=== PATIENT | male | born 1955 | race Caucasian/White ===

== ENCOUNTER 2020-10-18 06:52 | Outpatient (REF) | payer MEDICARE, SELFPAY ==
[2020-10-18 08:13] LABS: MANUAL DIFF FLAG NO
[2020-10-18 08:24] LABS: Basophils Percent Auto 0.6 % (0-2); Eosinophils Absolute Auto 0.2 X10*3/uL (0.0-0.4); Eosinophils Percent Auto 2.5 % (0-4); Hematocrit 42.2 % (42-52); Hemoglobin 14.7 g/dl (14.0-18.0); Imm Gran Abs Auto 0.03 X10*3/uL (0.00-0.03); Imm Gran Pct Auto 0.4 % (0.0-0.4); Lymphocytes Percent Auto 28.5 % (20-40); Mean Corpuscular HGB Conc 34.8 g/dl (31.0-36.0); Mean Corpuscular Hemoglobin 34.9 pg (27.0-33.0); Mean Corpuscular Volume 100.2 fL (80-98); Mean Platelet Volume 10.1 fL (9.4-12.4); Monocytes Absolute Auto 0.5 X10*3/uL (0.1-1.2); Monocytes Percent Auto 6.7 % (2-11); Neutrophils Absolute Auto 4.4 X10*3/uL (2.0-8.3); Neutrophils Percent Auto 61.3 % (45-73); Platelet Count 231 X10*3/uL (160-400); Red Blood Count 4.21 X10*6/uL (4.60-5.80); Red Cell Distribution Width 12.6 % (11.0-16.0); White Blood Count 7.2 X10*3/uL (4.8-10.8)
[2020-10-18 08:35] LABS: Alanine Aminotransferase 34 U/L (0-40); Albumin Level 4.1 g/dL (3.5-5.0); Alkaline Phosphatase 66 U/L (39-117); Anion Gap 15 (12-20); Aspartate Amino Transferase 24 U/L (5-37); Bilirubin Total 0.8 mg/dL (0.0-1.0); Blood Urea Nitrogen 16 mg/dL (9-16); Calcium 9.1 mg/dL (8.4-10.2); Carbon Dioxide 28 mmol/L (22-29); Chloride 105 mmol/L (96-108); Cholesterol 192 mg/dL; Estimated Glomerular Filt Rate > 60; Glucose Fasting 106 mg/dL (60-99); HDL Cholesterol 42 mg/dL; LDL Cholesterol Calculated 87 mg/dl; Potassium 4.7 mmol/L (3.3-5.1); Sodium 143 mmol/L (135-145); Triglycerides 319 mg/dL
[2020-10-18 09:46] LABS: Uric Acid 5.5 mg/dL (3.4-7.0)
== END 2020-10-18 06:53 | disposition home or self-care (01) ==
LOC: HO.LAB 06:52
PROVIDERS: PCP Internal Medicine; Visit Provider Internal Medicine
DX: Z00.00 Encounter for general adult medical examination without abnormal findings (principal); M10.9 Gout, unspecified; E11.9 Type 2 diabetes mellitus without complications
CPT/HCPCS: 36415; 80053; 80061; 84550; 85025

== ENCOUNTER 2021-02-22 08:30 | Outpatient (RCR) | payer MEDICARE, SELFPAY ==
--- NOTE | 2021-01-27 11:11 | MHC.OT.OEV ---
[address] [phone] F: [phone] Occupational Therapy Evaluation Diagnosis: GOUT LEFT FINGER Date of Onset: 08/23/20 Attending Provider: Ronan Camejo Prescribed Treatment: EVAL AND TREAT History of Current Condition: REPORTS HE HAD INFLAMMATION IN HIS LEFT INDEX FINGER, DETERMINED TO BE GOUT. SEEN BY ORTHO. REMAINS ON ALLOPURINOL TO REDUCE URIC ACID. CONTINUES TO REPORT ROM LIMITATIONS IN LEFT 2ND FINGER. Significant Medical History: CLUSTER HAs, HX OF FRACTURE TO RIGHT THUMB Precautions/Contraindications: UNIVERSAL Patient Goals: TO BE ABLE TO PLAY GUITAR WITH LEFT HAND Hand Dominance: Right QuickDASH Score: 14% Prior Level of Function and Occupation Self Care, Employment, Leisure: RETIRED. HOBBIES: EXERCISING / LIFTING WEIGHTS, PLAYING GUITAR, PLAYING WITH FOUR YOUNG GRANDCHILDREN Living Situation, Family and/or Social Support: LIVES WITH SPOUSE Current Level of Function and Occupation Self Care, Employment, Leisure: DIFFICULTIES WITH PLAYING GUITAR WITH LEFT HAND AND HOLDING BARBELL. DENIES DIFFICULTIES WITH HOUSEHOLD TASKS/ IADLs OR ADLs. Sleep: DENIES Driving: DENIES Pain Assessment Pain Score: 0-3 Pain Scale Used: Numeric (0 - 10) Pain Location and Description: PAINFREE AT REST 3/10 WITH ROM/ GRIPPING REPORTS TIGHTNESS TO DORSAL PIP WITH ROM/GRIPPING Aggravating Factors: END RANGE FLEXION, GRIPPING Alleviating Factors: HAS TRIED ICE/HEAT, PERCOCET FOR CLUSTER HEADACHES Skin and Soft Tissue Assessment Skin and Soft Tissue: Swelling Scar Tissue Comments: LEFT DORSAL PIPj OF INDEX FINGER Sensory Assessment Temperature: WFL Light Touch: Proprioception: Vibration: Comments: DENIES PARASTHESIA Edema Assessment Upper Extremity: Left Impaired Lower Extremity: Comments: CIRCUMFERENCE OF PIPj OF D2: LEFT: 6.8 CM, RIGHT: 7.0 CM Dexterity Assessment Dexterity: Left Impaired Comments: FUNCTIONAL DEXTERITY TEST: LEFT 45 SECONDS, RIGHT: 39 SECONDS LEFT: MODERATELY FUNCTIONAL RATING Special Tests Comments: AROM(PROM) Strength Digits Index MCP: L 84, R 72 PIP: L 94, R 94 DIP: L 74, R 90 Long MCP: PIP: DIP: Ring MCP: PIP: DIP: Small MCP: PIP: DIP: Comments: PAIN WITH PIP FLEXION OF D2 Gross Grasp: L 68 POUNDS, R 52 POUNDS Lateral Pinch: L 18 R 25 Two-Point Pinch: L 7 R 10 Three-Jaw Ramos: L 11 R 14 Comments: Patient Education Primary Language: Guyanese 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 Patient demonstrates Patient verbalizes Barriers to Learning: None Readiness for Learning: Accepting Who was educated? Patient Comments: Plan of Care Assessment: VREONICA REPORTS ABOUT A SIX MONTH HISTORY OF ROM LIMITATIONS IN HIS LEFT INDEX FINGER. HIS ROM LIMITATIONS BEGAN AFTER HAVING A GOUT FARE UP, AND EVEN AFTER THE GOUT WAS TREATED - HE CONTINUED TO HAVE ROM DEFICIENCIES. HE REPORTS FRUSTRATIONS WITH ABILITY TO PLAY THE GUITAR AND HOLD A DUMBBELL WHEN LIFTING WEIGHTS AT THE GYM. A 14% LIMITATION IS REPORTED PER THE QUICK DASH ASSESSMENT. STG Duration: Short Term Goals: SEE BELOW LTG Duration: 4 WEEKS Half-Way Goals: IND HEP IND SCAR MOBILIZATION AND SELF MASSAGE IMPROVE DEXTERITY TO FUNCTIONAL, PER FUNCTIONAL DEXTERITY TEST DEMO COMPOSITE FIST WITH LOW PAIN L GRASP >60 POUNDS RESUME HOBBIES/ IADLs WITH MINIMAL DIFFICULTIES AND <2/10 PAIN QUICK DASH <8% Frequency and Duration: The patient will be seen 2X/WEEK FOR 4 WEEKS Treatment Plan: Therapeutic Exercise Therapeutic Activity Home Exercise Program Splinting Neuro Re-ed Patient Education Desensitization/Sensory Re-ed Edema Control ADL Training Ultrasound NMES Iontophoresis Paraffin Fluidotherapy MHP Cold Packs Joint Mobilization Soft Tissue Mobilization Kinesiotaping Other (see comments) Electronically Signed By: RAMA BETANCOURT/L Reviewed/agree with student documentation: N/A Therapist: Please sign and return to therapist, Thank you for your referral.
--- NOTE | 2021-02-22 09:49 | MHC.OT.DC ---
[address] [phone] F: [phone] Occupational Therapy Discharge Note Provider: Ronan Camejo Diagnosis: GOUT LEFT FINGER Date of Surgery: Date of Evaluation: 01/27/21 Date of Discharge: 02/22/21 Treatments to Date: 5 Cancellations to Date: No Shows to Date: Discharge Status: Achieved Goals Improved Function Independent with HEP Discharge Summary: Index ROM WFL. Hand strength and dexterity WNL. Pt has improving index PIP jt stiffness at 90 deg and complaint of PIP jt pain with playing the guitar He is highly motivated to regain painfree index with playing the guitar and demonstrates indep in his HEP Electronically Signed By: DERRICK KENNEDY OT, CHT, CLT Reviewed/agree with student documentation: N/A Therapist: Please Sign and return to therapist, thank you for your referral.
== END 2021-02-22 09:50 | disposition other institution (70) ==
LOC: HO.OT 08:30
PROVIDERS: PCP Internal Medicine; Visit Provider Internal Medicine
DX: M10.9 Gout, unspecified (principal)
CPT/HCPCS: 97035; 97110; 97165; 97530

== ENCOUNTER → 2021-08-23 07:55 | Outpatient (BNVA) | payer MEDICARE, SELFPAY | PROVIDERS: PCP Internal Medicine; Referring Provider Internal Medicine; Visit Provider Psychiatry & Neurology Neurology | DX: G44.009 Cluster headache syndrome, unspecified, not intractable (principal); G47.33 Obstructive sleep apnea (adult) (pediatric); Z99.89 Dependence on other enabling machines and devices | CPT/HCPCS: 99212 ==

== ENCOUNTER → 2021-12-05 07:59 | Outpatient (BNVA) | payer MEDICARE, SELFPAY | PROVIDERS: PCP Internal Medicine; Visit Provider Psychiatry & Neurology Neurology | DX: G44.009 Cluster headache syndrome, unspecified, not intractable (principal); G47.33 Obstructive sleep apnea (adult) (pediatric) | CPT/HCPCS: 99212 ==

== ENCOUNTER → 2022-03-13 07:53 | Outpatient (BNVA) | payer MEDICARE, SELFPAY | PROVIDERS: PCP Internal Medicine; Visit Provider Psychiatry & Neurology Neurology | DX: G44.009 Cluster headache syndrome, unspecified, not intractable (principal); G47.33 Obstructive sleep apnea (adult) (pediatric) | CPT/HCPCS: 99212 ==

== ENCOUNTER 2022-04-18 07:28 | Outpatient (REF) | payer MEDICARE, SELFPAY ==
[2022-04-18 07:48] LABS: MANUAL DIFF FLAG NO
[2022-04-18 07:59] LABS: Basophils Percent Auto 0.5 % (0-2); Eosinophils Absolute Auto 0.2 X10*3/uL (0.0-0.4); Eosinophils Percent Auto 2.9 % (0-4); Hematocrit 43.2 % (42.0-52.0); Hemoglobin 14.6 g/dl (14.0-18.0); Imm Gran Abs Auto 0.03 X10*3/uL (0.00-0.03); Imm Gran Pct Auto 0.5 % (0.0-0.4); Lymphocytes Absolute Auto 1.9 X10*3/uL (1.2-4.9); Lymphocytes Percent Auto 30.8 % (20-40); Mean Corpuscular HGB Conc 33.8 g/dl (31.0-36.0); Mean Corpuscular Hemoglobin 34.2 pg (27.0-33.0); Mean Corpuscular Volume 101.2 fL (80.0-98.0); Mean Platelet Volume 9.6 fL (9.4-12.4); Monocytes Absolute Auto 0.5 X10*3/uL (0.1-1.2); Monocytes Percent Auto 7.9 % (2-11); Neutrophils Absolute Auto 3.6 x10*3/uL (2.0-8.3); Neutrophils Percent Auto 57.4 % (45-73); Platelet Count 183 X10*3/uL (160-400); Red Blood Count 4.27 X10*6/uL (4.60-5.80); White Blood Count 6.2 X10*3/uL (4.8-10.8)
[2022-04-18 08:23] LABS: Alanine Aminotransferase 27 U/L (0-40); Albumin Level 4.1 g/dL (3.5-5.0); Alkaline Phosphatase 62 U/L (39-117); Anion Gap 16 (12-20); Aspartate Amino Transferase 22 U/L (5-37); Bilirubin Total 0.8 mg/dL (0.0-1.0); Blood Urea Nitrogen 24 mg/dL (9-16); Calcium 9.5 mg/dL (8.4-10.2); Carbon Dioxide 28 mmol/L (22-29); Chloride 105 mmol/L (96-108); Cholesterol 205 mg/dL; Estimated Glomerular Filt Rate > 60; Glucose Fasting 97 mg/dL (60-99); HDL Cholesterol 49 mg/dL; LDL Cholesterol Calculated 101 mg/dl; Potassium 4.7 mmol/L (3.3-5.1); Sodium 144 mmol/L (135-145); Triglycerides 275 mg/dL; Uric Acid 5.5 mg/dL (3.4-7.0)
[2022-04-18 08:46] LABS: Thyroid Stimulating Hormone 1.24 uIU/mL (0.32-4.0)
== END 2022-04-18 07:29 | disposition home or self-care (01) ==
LOC: HO.LAB 07:28
PROVIDERS: Absent Provider Psychiatry & Neurology Neurology; PCP Internal Medicine; Visit Provider Internal Medicine
DX: Z00.00 Encounter for general adult medical examination without abnormal findings (principal); Z12.5 Encounter for screening for malignant neoplasm of prostate; Z13.0 Encounter for screening for diseases of the blood and blood-forming organs and certain disorders involving the immune mechanism; M10.9 Gout, unspecified; E78.5 Hyperlipidemia, unspecified; E03.9 Hypothyroidism, unspecified; I10 Essential (primary) hypertension
CPT/HCPCS: 36415; 80053; 80061; 84153; 84443; 84550; 85025

== ENCOUNTER → 2022-06-05 09:41 | Outpatient (REF) | payer MEDICARE, SELFPAY ==
--- NOTE | 2022-06-05 09:51 | ECG_ITS ---
Test Reason : DIZZINESS Blood Pressure : / mmHG Vent. Rate : 054 BPM Atrial Rate : 054 BPM P-R Int : 212 ms QRS Dur : 092 ms QT Int : 428 ms P-R-T Axes : 053 003 028 degrees QTc Int : 405 ms Sinus bradycardia with 1st degree A-V block RSR' or QR pattern in V1 suggests right ventricular conduction delay Left axis deviation Abnormal ECG No previous ECGs available Referred By: Ronan Camejo Electronically Signed By:KRISTOPHER PETIT MD
== END ==
LOC: HO.CARD 09:41
PROVIDERS: PCP Internal Medicine; Visit Provider Internal Medicine
DX: R42 Dizziness and giddiness (principal)
CPT/HCPCS: 93005

== ENCOUNTER → 2022-06-07 08:39 | Outpatient (BNVA) | payer MEDICARE, SELFPAY | PROVIDERS: PCP Internal Medicine; Visit Provider Nurse Practitioner Family | DX: G44.009 Cluster headache syndrome, unspecified, not intractable (principal); G47.33 Obstructive sleep apnea (adult) (pediatric) | CPT/HCPCS: 99212 ==

== ENCOUNTER 2022-08-02 10:18 | Outpatient (REF) | payer MEDICARE, SELFPAY | END 2022-08-02 10:19 | disposition home or self-care (01) | LOC: HO.SH 10:18 | PROVIDERS: Visit Provider Internal Medicine | DX: Z01.118 Encounter for examination of ears and hearing with other abnormal findings (principal); H90.3 Sensorineural hearing loss, bilateral | CPT/HCPCS: 92557 ==

== ENCOUNTER → 2022-08-22 07:55 | Outpatient (BNVA) | payer MEDICARE, SELFPAY | PROVIDERS: PCP Internal Medicine; Visit Provider Psychiatry & Neurology Neurology | DX: G44.009 Cluster headache syndrome, unspecified, not intractable (principal); G47.33 Obstructive sleep apnea (adult) (pediatric) | CPT/HCPCS: 99212 ==

== ENCOUNTER 2022-08-28 14:05 | Outpatient (REF) | payer MEDICARE, SELFPAY ==
[2022-08-28 14:17] LABS: MANUAL DIFF FLAG NO
[2022-08-28 14:39] LABS: Basophils Percent Auto 0.4 % (0-2); Eosinophils Absolute Auto 0.1 X10*3/uL (0.0-0.4); Eosinophils Percent Auto 1.6 % (0-4); Hemoglobin 13.2 g/dl (14.0-18.0); Imm Gran Abs Auto 0.03 X10*3/uL (0.00-0.03); Imm Gran Pct Auto 0.4 % (0.0-0.4); Lymphocytes Absolute Auto 1.6 X10*3/uL (1.2-4.9); Lymphocytes Percent Auto 21.7 % (20-40); Mean Corpuscular HGB Conc 34.7 g/dl (31.0-36.0); Mean Corpuscular Hemoglobin 34.7 pg (27.0-33.0); Mean Platelet Volume 9.7 fL (9.4-12.4); Monocytes Absolute Auto 0.4 X10*3/uL (0.1-1.2); Monocytes Percent Auto 5.4 % (2-11); Neutrophils Absolute Auto 5.2 x10*3/uL (2.0-8.3); Neutrophils Percent Auto 70.5 % (45-73); Platelet Count 213 X10*3/uL (160-400); Red Cell Distribution Width 12.1 % (11.0-16.0); White Blood Count 7.4 X10*3/uL (4.8-10.8)
[2022-08-28 15:04] LABS: Anion Gap 14 (12-20); Blood Urea Nitrogen 16 mg/dL (9-16); Calcium 9.9 mg/dL (8.4-10.2); Carbon Dioxide 28 mmol/L (22-29); Chloride 106 mmol/L (96-108); Estimated Glomerular Filt Rate 57; Glucose Random 140 mg/dL (60-115); Potassium 4.6 mmol/L (3.3-5.1); Sodium 143 mmol/L (135-145)
[2022-08-28 15:20] LABS: Appearance Urine Clear; Color Urine Yellow; Glucose Urine UA Negative (Negative); Leukocyte Esterase Urine Negative (Negative); Nitrite Urine Negative (Negative); Urine Blood Negative (Negative); Urine Ketones Negative (Negative); Urine Protein Negative (Neg-Trace)
== END 2022-08-28 14:06 | disposition home or self-care (01) ==
LOC: HO.LAB 14:05
PROVIDERS: PCP Internal Medicine; Visit Provider Internal Medicine
DX: N39.0 Urinary tract infection, site not specified (principal); D64.9 Anemia, unspecified; R10.9 Unspecified abdominal pain
CPT/HCPCS: 36415; 80048; 81003; 85025

== ENCOUNTER 2022-09-05 11:58 | Outpatient (REF) | payer MEDICARE, SELFPAY ==
--- NOTE | ~2022-09-05 | US_ITS ---
EXAMINATION: US ABDOMEN COMPLETE CLINICAL INFORMATION: Abdominal pain. COMPARISON: None TECHNIQUE: Real-time imaging of the abdominal viscera. FINDINGS: PANCREAS: The pancreas is partially obscured by bowel gas. The visualized portions of the pancreas are normal. No pancreatic ductal dilatation. ABDOMINAL AORTA: The proximal abdominal aorta is normal in caliber. The mid and distal segments of the aorta are obscured by bowel gas. INFERIOR VENA CAVA: Visualized portions are normal. LIVER: Liver has normal size and contour. The parenchyma appears to be mildly hyperechoic with slightly decreased definition of venous cardona throughout the liver. Mild steatosis is suspected. No focal lesion or intrahepatic bile duct dilatation. GALLBLADDER: Surgically absent. COMMON BILE DUCT: Normal in caliber measuring 0.7 - 0.8 cm in diameter. RIGHT KIDNEY: The right kidney is 10.7 cm in length and it has a few simple cysts, including 5.6 cm cyst of the upper pole. No renal imaging follow-up is recommended for simple cysts. No nephrolithiasis or hydronephrosis. LEFT KIDNEY: Normal. No hydronephrosis. No renal calculi or focal parenchymal lesions. The kidney measures 11.9 cm in maximum dimension. SPLEEN: Normal. The spleen measures 11.1 cm in maximum dimension. FREE FLUID: None. US/US abdomen complete IMPRESSION: * No acute sonographic abnormalities within the visualized abdomen. * Mild hepatic steatosis is suspected. Consider correlation with liver function tests. * Simple cysts of the right kidney.
== END 2022-09-05 11:59 | disposition home or self-care (01) ==
LOC: HO.US 11:58
PROVIDERS: Visit Provider Internal Medicine
DX: R10.9 Unspecified abdominal pain (principal)
CPT/HCPCS: 76700

== ENCOUNTER → 2022-10-24 08:21 | Outpatient (BNVA) | payer MEDICARE, SELFPAY | PROVIDERS: PCP Internal Medicine; Visit Provider Psychiatry & Neurology Neurology | DX: G44.009 Cluster headache syndrome, unspecified, not intractable (principal); G43.709 Chronic migraine without aura, not intractable, without status migrainosus; G47.33 Obstructive sleep apnea (adult) (pediatric) | CPT/HCPCS: 99212 ==

== ENCOUNTER → 2022-11-21 09:04 | Outpatient (BNVA) | payer MEDICARE, SELFPAY | PROVIDERS: PCP Internal Medicine; Referring Provider Internal Medicine; Visit Provider Internal Medicine | DX: R42 Dizziness and giddiness (principal); G47.33 Obstructive sleep apnea (adult) (pediatric); Z82.49 Family history of ischemic heart disease and other diseases of the circulatory system | CPT/HCPCS: 99202 ==

== ENCOUNTER → 2022-12-08 07:51 | Outpatient (REF) | payer MEDICARE, SELFPAY ==
--- NOTE | 2022-12-08 07:54 | CA_ITS ---
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 Study Quality: Adequate w Contrast ECG Rhythm: Sinus Conclusions: - Normal left ventricular cavity size. There is moderately increased left ventricular wall thickness. The left ventricular systolic function is low normal. The visually estimated ejection fraction is between 50-55%. - The apex, apical anterior, and apical lateral segments are hypokinetic. Findings Left Ventricle Normal left ventricular cavity size. There is moderately increased left ventricular wall thickness. The left ventricular systolic function is low normal. The visually estimated ejection fraction is between 50-55%. There is evidence of regional wall motion abnormalities. Abnormal diastolic function is noted. Spectral Doppler is indicative of an impaired relaxation filling pattern. E/E prime ratio is between 8 and 15 consistent with indeterminate filling pressures. Wall Motion Rest Echo Findings The apex, apical anterior, and apical lateral segments are hypokinetic. Right Ventricle Normal right ventricular cavity size and systolic function. Atria The left atrium is normal in size. Aortic Valve Normal aortic valve structure and function. There is no aortic valve stenosis. There is trace (trivial) aortic valve regurgitation. Mitral Valve Normal mitral valve structure and function. There is mild mitral valve regurgitation. There is no mitral valve stenosis. Pulmonic Valve Normal pulmonic valve structure and function. There is trace pulmonic valve regurgitation. Tricuspid Valve Normal tricuspid valve structure and function. There is no tricuspid valve regurgitation. Normal right atrial pressure. There is no evidence of pulmonary hypertension. Great Vessels There is mild dilatation of the ascending aorta measuring 4.10 cm. The visualized portions of the pulmonary artery and branches are normal. Venous The inferior vena cava is normal in size and collapses greater than 50% with inspiration. Pericardium/Pleural There is no evidence of pericardial effusion. Measurements 2D Linear Measurements IVSd: 1.41 0.6-0.9/0.6-1.0 cm LVIDd: 5.33 3.9-5.3/4.2-5.9 cm LVIDd Index: 2.29 2.4-3.2/2.2-3.1 cm/m2 LVIDs: 2.81 2.0-3.6 cm LVPWd: 1.44 0.7-1.1 cm Ao Root: 3.70 2.1-3.5 cm LA Diam: 3.30 2.7-3.8/3.0-4.0 cm LAIDs Index: 1.42 1.5-2.3 cm/m2 LV Mass: 411.76 67-162/88-224 g LV Mass Index: 176.72 43-95/49-115 g/m2 LVOT Diam: 2.20 3.0+(-)1.3 cm 2D Systolic Function EF 4C: 51.50 >55% EF 2C: 71.40 >55% EF BiP: 62.90 >55% Mitral Valve MV Pk E: 0.78 MV PK A: 0.82 MV Decel Time: 303.00 E/A: 0.90 E'Lateral: 7.62 E'Medial: 4.13 E/E' Med: 18.90 E/E' Lat: 10.20 PHT: 89.00 MVA PHT: 2.47 Decel Thayer: 2.58 Aortic Valve AoV Pk Anderson: 1.81 AoV Mn Anderson: 1.13 AoV VTI: 0.42 AoV Pk Grad: 13.00 Aov Mn Grad: 6.00 EZ Cont.VTI: 2.67 LVOT LVOT Pk Anderson: 1.36 LVOT Mn Anderson: 0.90 LVOT VTI: 0.30 LVOT Pk Grad: 7.00 LVOT Mn Grad: 4.00 LVOT Diam: 2.20 LVOT Area: 3.80 Diastolic Function MV Pk E: 0.78 MV Pk A: 0.82 E/A: 0.90 E'Medial: 4.13 E/E' Med: 18.90 E' Laterial: 7.62 E/E' Lat: 10.20 Right Ventricle TAPSE (mm): 28.00 TVS' Anderson: 16.00 Tricuspid Valve TR Pk Anderson: 1.63 TR Pk Grad: 11.00 RA Press: 3.00 RVSP: 14.00 Great Vessels Aorta Ao Root-2D: 3.70 2.0-3.7 cm Ao Asc: 4.10 2.1-3.4 cm Pulmonary Valve PV Pk Anderson: 1.17 Peak PV Grad: 5.00 Updated in Other Vendor System with Status of Final Michael Willis MD electronically signed on 12/10/2022 9:27:50 PM with status of Final
== END ==
LOC: HO.CARD 07:51
PROVIDERS: PCP Internal Medicine; Visit Provider Internal Medicine
DX: I25.10 Atherosclerotic heart disease of native coronary artery without angina pectoris (principal); G47.33 Obstructive sleep apnea (adult) (pediatric)
CPT/HCPCS: 93306; Q9957

== ENCOUNTER 2022-12-19 14:48 | Outpatient (REF) | payer MEDICARE, SELFPAY ==
[2022-12-19 16:04] LABS: Anion Gap 12 (12-20); Blood Urea Nitrogen 20 mg/dL (9-16); Calcium 9.3 mg/dL (8.4-10.2); Carbon Dioxide 29 mmol/L (22-29); Chloride 107 mmol/L (96-108); Estimated Glomerular Filt Rate > 60; Glucose Random 144 mg/dL (60-115); Potassium 4.5 mmol/L (3.3-5.1); Sodium 143 mmol/L (135-145)
== END 2022-12-19 14:49 | disposition home or self-care (01) ==
LOC: HO.LAB 14:48
PROVIDERS: PCP Internal Medicine; Visit Provider Internal Medicine
DX: R42 Dizziness and giddiness (principal); Z82.49 Family history of ischemic heart disease and other diseases of the circulatory system
CPT/HCPCS: 36415; 80048

== ENCOUNTER 2023-02-16 06:28 | Outpatient (REF) | payer MEDICARE, SELFPAY ==
[2023-02-16 08:26] LABS: Alanine Aminotransferase 29 U/L (0-40); Albumin Level 3.9 g/dL (3.5-5.0); Alkaline Phosphatase 64 U/L (39-117); Aspartate Amino Transferase 26 U/L (5-37); Bilirubin Direct 0.4 mg/dL (0.0-0.5); Bilirubin Total 0.6 mg/dL (0.0-1.0); Cholesterol 106 mg/dL; HDL Cholesterol 43 mg/dL; LDL Cholesterol Calculated 47 mg/dl; Total Protein 6.6 g/dL (6.5-8.0); Triglycerides 81 mg/dL
== END 2023-02-16 06:29 | disposition home or self-care (01) ==
LOC: HO.LAB 06:28
PROVIDERS: PCP Internal Medicine; Visit Provider Internal Medicine
DX: Z13.220 Encounter for screening for lipoid disorders (principal); Z82.49 Family history of ischemic heart disease and other diseases of the circulatory system
CPT/HCPCS: 36415; 80061; 80076

== ENCOUNTER 2023-03-13 13:37 | Outpatient (AMB) | payer MEDICARE, SELFPAY ==
[2023-03-13 14:09] VITALS: BP 186/82; PULSE 59; BMI 38.3
--- NOTE | 2023-03-13 14:09 | A.OFFVIS_ITS ---
Intake Vital Signs 03/13/23 14:09 Height 5 ft 10 in Weight 266 lb 12.149 oz BMI 38.3 BP 186/82 H Blood Pressure Location Lt brachial Position Sitting Pulse 59 Intake Visit Reasons: f/up Echo and calcium score Intake Note: follow up Hedis Analyst Required: No Accompanied by: Self / Same As Patient Allergies codeine Allergy (Unknown, Verified 03/13/23 14:11) Unknown erythromycin base Allergy (Unknown, Verified 03/13/23 14:11) Unknown Medication List - Last Reconciled 03/13/23 by Chinmay Wallace MD allopurinol 300 mg PO DAILY clonazepam 0.25 mg (1/2 x 0.5 mg) PO BEDTIME 30 days erenumab-aooe (Aimovig Autoinjector) 140 mg subcut ONCE 30 days gabapentin 1,200 mg (2 x 600 mg) PO TID 30 days magnesium oxide 400 mg PO DAILY oxycodone-acetaminophen 5-325 mg 1 - 2 tabs PO DAILY PRN 30 days riboflavin (vitamin B2) 400 mg PO DAILY rosuvastatin 10 mg PO DAILY verapamil 120 mg PO TID 30 days HPI HPI Comments History of Present Illness Details Aman was recently seen in consultation. He was actually referred for dizziness but that seems completely resolved at this time. However, there was concern for vascular disease as father apparently had coronary disease in apparent surgery and brother had congestive heart failure. This led to further workup including echocardiogram/coronary CTA. Since last seen, he states that he no longer has any dizziness and that is completely resolved. His blood pressures tend to run high when he is in the clinic but he states it is only from [place] hypertension and that it completely normalizes when he returns home. Otherwise, no angina or in fact anything cardiac sounding. Patient is on verapamil but that is for headaches. He also has significant sleep apnea. On CPAP. [facility] Medical History (Updated 03/13/23 @ 15:50 by Chinmay Wallace MD) Atherosclerotic cardiovascular disease Cluster headaches Gout Obesity Obstructive sleep apnea hypopnea, severe Surgical History History of cholecystectomy Family History Father Renal failure Mother Esophageal cancer Sister Lupus Brother End of life care Sister No problems noted. Son Substance use disorder Son Substance use disorder Social History Housing: House Alcohol intake: current Alcohol intake frequency: a few times a month Patient Tobacco Use Status: Never used Tobacco e-Cigarette/Vaping Use: Never Used Second Hand Smoke Exposure: No service: No Current occupational status: retired Cognitive needs: No Hearing needs: No Vision needs: No Review of Systems Const Denies weakness ENT Denies dizziness Card Denies chest pain, Denies chest pain with activity, Denies syncope, Denies rapid heart rate, Denies pedal edema, Denies edema, Denies leg edema, Denies lightheadedness, Denies palpitations, Denies dyspnea, Denies dyspnea on exertion and Denies orthopnea Resp Denies cough, Denies dyspnea and Denies dyspnea on exertion GI Denies hematochezia and Denies change in stool character Musc Denies abnormal gait, Denies muscle cramps, Denies muscle weakness, Denies numbness, Denies radiating pain into limb and Denies tingling Neuro Denies abnormal gait, Denies dizziness, Denies syncope, Denies numbness, Denies tingling and Denies weakness Endo Denies palpitations Physical Exam Vital Signs: Last Vital Signs Pulse 59 03/13/23 14:09 BP 186/82 H 03/13/23 14:09 BMI result Body Mass Index 38.3 Const General: comfortable and no acute distress Orientation/consciousness: patient oriented x3 HEENT Other: Unremarkable Head: Yes normal to inspection Neck Neck: Yes normal visual inspection Chest Chest palpation & inspection: normal inspection of the chest Resp Auscultation: clear to auscultation bilaterally Cardio Palpation: normal PMI Heart sounds: S1 normal heart sound present, S2 normal heart sound present, no gallops, no murmurs and no rubs GI Palpation (GI): Soft to palpation Back/Spine/Pelvis Other: unremarkable Skin General skin exam: no rashes or lesions noted Neuro General: patient oriented x3 Extrem General: Yes normal to inspection Psych Mental Status: mental status grossly normal Assessment & Plan Assessment & Plan (1) Atherosclerotic cardiovascular disease: Code(s): I25.10 - Atherosclerotic heart disease of [place] coronary artery without angina pectoris (2) Obstructive sleep apnea hypopnea, severe: Code(s): G47.33 - Obstructive sleep apnea (adult) (pediatric) (3) Obesity: Code(s): E66.9 - Obesity, unspecified (4) Dyslipidemia: Code(s): E78.5 - Hyperlipidemia, unspecified (5) Ascending aorta enlargement: Code(s): I77.89 - Other specified disorders of arteries and arterioles Plan Cardiac studies reviewed. Recent EKG with sinus bradycardia 54/Min; no significant ST-T changes; normal TX and corrected QT. Echocardiogram reported to have low normal LVEF at 50-55%; apex/apical anterior/apical lateral hypokinesis described but upon my review, not entirely convincing. Ascending aortic size 4.1 cm. In the coronary CTA, nothing hemodynamically significant. Albn-jy-[id number] calcific plaque in the LAD/try coronary artery but minimal stenosis at less than 25%. Overall, treat for stable coronary disease. He has been started on statins and lipids have improved significantly. That may be continued. With regard to his weight, definitely should lose some and we discussed about that today. Per sleep medicine note, severe JAMIL. Continue CPAP in this regard. The slight ascending aortic enlargement can be followed on echocardiograms. Follow-up in 1 year. In the interim, he will call concerns. Total time spent including review of data, counseling, documentation, coordination of care-32 minutes. Orders: Orders CA echo transthoracic complete 51 Weeks I25.10 - Atherosclerotic heart disease of [place] coronary artery without angina pectoris Coding Level of Care Code Est Pt Level 4 (17133) Diagnoses Atherosclerotic cardiovascular disease I25.10 Obstructive sleep apnea hypopnea, severe G47.33 Obesity E66.9 Dyslipidemia E78.5 Ascending aorta enlargement I77.89
== END 2023-03-13 15:44 | disposition home or self-care (01) ==
PROVIDERS: PCP Internal Medicine; Visit Provider Internal Medicine
DX: I25.10 Atherosclerotic heart disease of native coronary artery without angina pectoris (principal); G47.33 Obstructive sleep apnea (adult) (pediatric); E66.9 Obesity, unspecified; E78.5 Hyperlipidemia, unspecified; I77.89 Other specified disorders of arteries and arterioles
CPT/HCPCS: 99214

== ENCOUNTER → 2023-03-13 13:37 | Outpatient (BNVA) | payer MEDICARE, SELFPAY | PROVIDERS: PCP Internal Medicine; Visit Provider Internal Medicine | DX: I25.10 Atherosclerotic heart disease of native coronary artery without angina pectoris (principal); I77.89 Other specified disorders of arteries and arterioles; E78.5 Hyperlipidemia, unspecified; G47.33 Obstructive sleep apnea (adult) (pediatric); E66.9 Obesity, unspecified; Z68.38 Body mass index [BMI] 38.0-38.9, adult | CPT/HCPCS: 99212 ==

== ENCOUNTER 2023-05-17 07:25 | Outpatient (AMB) | payer MEDICARE, SELFPAY ==
--- NOTE | 2023-05-17 07:32 | MHC.OFFVIS ---
Intake Vital Signs 05/17/23 07:34 Height 5 ft 10 in Weight 272 lb BMI 39.0 BP 160/96 H Blood Pressure Location Rt brachial Position Sitting Pulse 75 Pulse Source Pulse Oximeter Pulse Oximetry (%) 96 Oxygen Delivery Method Room Air Intake Visit Reasons: 3m follow up Cluster [place]-confirmed Intake Note: Patient presents follow up 3 month. Patient states no issues or concerns today Allergies codeine Allergy (Unknown, Verified 05/17/23 07:36) Unknown erythromycin base Allergy (Unknown, Verified 05/17/23 07:36) Unknown Medication List - Last Reconciled 05/17/23 by Kayla Holt MD allopurinol 300 mg PO DAILY amoxicillin 250 mg PO Q8H clonazepam 0.25 mg (1/2 x 0.5 mg) PO BEDTIME 30 days erenumab-aooe (Aimovig Autoinjector) 140 mg subcut ONCE 30 days gabapentin 1,200 mg (2 x 600 mg) PO TID 30 days magnesium oxide 400 mg PO DAILY oxycodone-acetaminophen 5-325 mg 1 - 2 tabs PO DAILY PRN 30 days riboflavin (vitamin B2) 400 mg PO DAILY rosuvastatin 10 mg PO DAILY verapamil 120 mg PO TID 30 days HPI HPI Comments History of Present Illness Details 68 y/o male patient presents for follow up of chronic cluster headache, migraines and sleep apnea. Patient is on aimovig 140mg q monthly . He has not been taking aimovig for 3 months due to financial reasons.His headaches have increased to 2-3 a night. He was trie don triptans but had chest tightness. [place] and high flow oxygen did not work. He is unable to tolerate topiramate- due to tingling in his distal extremities He did not trial nurtec yet due to GI issues.He is also on verapramil which increases his nurtec levels sos he did not start. Patient has constipation but relieved with use of stool softeners and benefiber. Pt has 2 headaches a night - 1st is mild , 2nd is around 3 am and it is more severe headache with tearing, it lasts 45 min-60min. He takes Percocet for the first headache, and he can sleep with it. He wakes up 3am because of the second headache and walking around, it relieves the headache. He is complaint with CPAP. [facility] Medical History Atherosclerotic cardiovascular disease Obstructive sleep apnea hypopnea, severe Cluster headaches Obesity Gout Surgical History History of cholecystectomy Family History Father Renal failure Mother Esophageal cancer Sister Lupus Brother End of life care Sister No problems noted. Son Substance use disorder Son Substance use disorder Social History Housing: House Alcohol intake: current Alcohol intake frequency: a few times a month Patient Tobacco Use Status: Never used Tobacco e-Cigarette/Vaping Use: Never Used Second Hand Smoke Exposure: No service: No Current occupational status: retired Cognitive needs: No Hearing needs: No Vision needs: No Physical Exam Vital Signs: Last Vital Signs Pulse 75 05/17/23 07:34 BP 160/96 H 05/17/23 07:34 Pulse Ox 96 05/17/23 07:34 Oxygen Delivery Method Room Air 05/17/23 07:34 BMI result Body Mass Index 39.0 Const General: cooperative, healthy appearing and no acute distress Nutritional Appearance: obese Orientation/consciousness: patient oriented x3 Neuro General: patient oriented x3, gait normal, tone normal, moves all extremities, no focal motor deficits and CN's II-XI intact bilaterally Assessment & Plan Assessment & Plan (1) Cluster headaches: Code(s): G44.009 - Cluster headache syndrome, unspecified, not intractable (2) Obstructive sleep apnea hypopnea, severe: Code(s): G47.33 - Obstructive sleep apnea (adult) (pediatric) (3) Chronic migraine without aura: Code(s): G43.709 - Chronic migraine without aura, not intractable, without status migrainosus Plan Aimovig 140mg sq monthly Will consider to wean off Percocet Hold nurtec clonazepam 0.125 mg qhs Continue to take verapamil, and vitamin B2. Continue to use APAP at [id number]. Compliance stressed, nightly and more than 4 hours. Coding Level of Care Code Est Pt Level 4 (50117) Diagnoses Cluster headaches G44.009 Obstructive sleep apnea hypopnea, severe G47.33 Chronic migraine without aura G43.709
[2023-05-17 07:34] VITALS: BP 160/96; PULSE 75; O2SAT 96; BMI 39.0
== END 2023-05-17 08:15 | disposition home or self-care (01) ==
PROVIDERS: Visit Provider Psychiatry & Neurology Neurology
DX: G44.009 Cluster headache syndrome, unspecified, not intractable (principal); G47.33 Obstructive sleep apnea (adult) (pediatric); G43.709 Chronic migraine without aura, not intractable, without status migrainosus
CPT/HCPCS: 99214

== ENCOUNTER → 2023-05-17 07:25 | Outpatient (BNVA) | payer MEDICARE, SELFPAY | PROVIDERS: Visit Provider Psychiatry & Neurology Neurology | DX: G44.009 Cluster headache syndrome, unspecified, not intractable (principal); G43.709 Chronic migraine without aura, not intractable, without status migrainosus; G47.33 Obstructive sleep apnea (adult) (pediatric) | CPT/HCPCS: 99212 ==

== ENCOUNTER 2023-07-11 09:23 | Outpatient (AMB) | payer MEDICARE, SELFPAY ==
[2023-07-11 09:26] VITALS: BP 158/80; PULSE 65; O2SAT 98; BMI 38.9
--- NOTE | 2023-07-11 09:26 | MHC.PC.OV ---
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 per policy Accompanied by: Self / Same As Patient Allergies codeine Allergy (Unknown, Verified 07/11/23 09:26) Unknown erythromycin base Allergy (Unknown, Verified 07/11/23 09:26) Unknown Medication List - Last Reconciled 07/11/23 by Ronan Camejo MD allopurinol 300 mg PO DAILY ciprofloxacin HCl (Cipro) 250 mg PO BID erenumab-aooe (Aimovig Autoinjector) 140 mg subcut ONCE 30 days gabapentin 1,200 mg (2 x 600 mg) PO TID 30 days magnesium oxide 400 mg PO DAILY oxycodone-acetaminophen 5-325 mg 1 - 2 tabs PO DAILY PRN 30 days riboflavin (vitamin B2) 400 mg PO DAILY rosuvastatin 10 mg PO DAILY verapamil 120 mg PO TID 30 days Tobacco use date assessed: 08/28/22 Fall risk assessment: No Falls in past year Last assessed Fall Risk: 07/11/23 Dental Screening Dental Screen Date: 07/11/23 Did you have a dental visit in the last 12 months?: Yes Did you have a dental problem in the last 6 months where you did not have access to dental care?: No Was dental information given to patient?: Patient has dentist HPI Physical Exam HPI Details HTN and hyperlipidemia; stable [facility] Medical History Atherosclerotic cardiovascular disease Obstructive sleep apnea hypopnea, severe Cluster headaches Obesity Gout Surgical History History of cholecystectomy Family History Father Renal failure Mother Esophageal cancer Sister Lupus Brother End of life care Sister No problems noted. Son Substance use disorder Son Substance use disorder Social History Housing: House Alcohol intake: current Alcohol intake frequency: a few times a month Patient Tobacco Use Status: Never used Tobacco e-Cigarette/Vaping Use: Never Used Second Hand Smoke Exposure: No service: No Current occupational status: retired Cognitive needs: No Hearing needs: No Vision needs: No Questionnaire Thrive Questionnaire Date Thrive assessed: 08/28/22 TONIO-7 AMB Questionnaire TONIO-7 Date TONIO - 7 assessed: 08/28/22 Source: Developed by Drs. Anoop Lang, Susan Harrell, Marcial Tamez and colleagues, with an educational marisol from [employer]. Review of Systems Const Denies chills, Denies fatigue, Denies headache(s) and Denies weight loss Eyes Denies change in vision, Denies diplopia and Denies eye pain ENT Denies vertigo, Denies dizziness, Denies headache(s) and Denies nasal discharge Card Denies chest pain, Denies rapid heart rate and Denies dyspnea on exertion Resp Denies chest congestion, Denies cough, Denies pain with cough and Denies dyspnea on exertion GI Denies abdominal pain, Denies hematochezia and Denies change in bowel habits Musc Denies myalgias, Denies arthralgias and Denies joint swelling Skin/Breast Denies lesions and Denies unusual bruising Neuro Denies vertigo, Denies dizziness, Denies headache(s) and Denies focal weakness Endo Denies fatigue Physical exam (Primary Care) Vital Signs: Last Vital Signs Pulse 65 07/11/23 09:26 BP 158/80 H 07/11/23 09:26 Pulse Ox 98 07/11/23 09:26 Oxygen Delivery Method Room Air 07/11/23 09:26 BMI result Body Mass Index 38.9 Tobacco/Smoking Status: Tobacco use Status Tobacco use date assessed 08/28/22 07/11/23 09:27 Patient Tobacco Use Status Never used Tobacco 07/11/23 09:27 e-Cigarette/Vaping Use Never Used 07/11/23 09:27 Thrive Assessment: Date of Thrive Assessment Date Thrive assessed 08/28/22 07/11/23 09:27 Const General: cooperative, healthy appearing and no acute distress Orientation/consciousness: oriented to person, oriented to place and oriented to time HENMT Head: Yes normal to inspection, Yes normocephalic and Yes atraumatic Mouth: Normal oral and palatal mucosa present and tongue normal Throat: Yes posterior oropharynx normal and Yes uvula midline Eyes General: appearance normal, both eyes and all related structures Neck Neck: Yes normal visual inspection, Yes full ROM and Yes no lymphadenopathy Thyroid: Thyroid normal Carotids: normal carotid upstroke Chest Chest palpation & inspection: normal inspection of the chest Resp Effort & Inspection: normal respiratory effort and able to speak in complete sentences Auscultation: clear to auscultation bilaterally Cardio Jugular venous distension: no JVD Palpation: normal PMI Rate: regular rate Rhythm: regular rhythm Heart sounds: S1 normal heart sound present and S2 normal heart sound present GI Inspection: Yes normal to inspection Palpation (GI): Soft to palpation and No hepatosplenomegaly present Auscultation: normal bowel sounds General: Yes no CVA tenderness Back/Spine/Pelvis Back: no CVA tenderness Skin General skin exam: no rashes or lesions noted Neuro General: oriented to person, oriented to place and oriented to time Extrem General: Yes normal to inspection and Yes full ROM Assessment and Plan Assessment & Plan (1) Physical exam: Code(s): Z00.00 - Encounter for general adult medical examination without abnormal findings Plan: do labs (2) Dyslipidemia: Code(s): E78.5 - Hyperlipidemia, unspecified Plan: stable; same rx (3) Hypertension: Code(s): I10 - Essential (primary) hypertension Plan: stable; same rx Orders: Orders Complete Blood Count Auto Diff Today D64.9 - Anemia, unspecified Prostate Specific Antigen Scr Today Z00.00 - Encounter for general adult medical examination without abnormal findings Uric Acid Today M10.9 - Gout, unspecified Lipid Panel Today E78.5 - Hyperlipidemia, unspecified Thyroid Stimulating Hormone Today E03.9 - Hypothyroidism, unspecified Comprehensive [place]. Panel Fast Today N28.9 - Disorder of kidney and ureter, unspecified Referrals Cologuard Test Z12.11 - Encounter for screening for malignant neoplasm of colon, Z12.12 - Encounter for screening for malignant neoplasm of rectum Cologuard Test Z12.11 - Encounter for screening for malignant neoplasm of colon, Z12.12 - Encounter for screening for malignant neoplasm of rectum Cologuard Test Z12.11 - Encounter for screening for malignant neoplasm of colon, Z12.12 - Encounter for screening for malignant neoplasm of rectum Medications: New ciprofloxacin HCl (Cipro) 250 mg PO BID 10 tabs 0RF Coding Level of Care Code Est Pt Prev Care >65y(59974) Diagnoses Physical exam Z00.00 Dyslipidemia E78.5 Hypertension I10
== END 2023-07-11 10:22 | disposition home or self-care (01) ==
PROVIDERS: PCP Internal Medicine; Visit Provider Internal Medicine
DX: Z00.00 Encounter for general adult medical examination without abnormal findings (principal); E78.5 Hyperlipidemia, unspecified; I10 Essential (primary) hypertension
CPT/HCPCS: 99397

== ENCOUNTER 2023-10-18 08:41 | Outpatient (RCR) | payer MEDICARE, SELFPAY | END 2023-12-13 09:00 | disposition other institution (70) | LOC: HO.WCC 08:41 | PROVIDERS: PCP Internal Medicine; Visit Provider Surgery | DX: S21.001A Unspecified open wound of right breast, initial encounter (principal); L24.A0 Irritant contact dermatitis due to friction or contact with body fluids, unspecified; L72.0 Epidermal cyst; I10 Essential (primary) hypertension; Z79.899 Other long term (current) drug therapy; Z79.891 Long term (current) use of opiate analgesic | CPT/HCPCS: 11042; 17250 ==

== ENCOUNTER → 2023-11-19 08:18 | Outpatient (BNVA) | payer MEDICARE, SELFPAY | PROVIDERS: PCP Internal Medicine; Visit Provider Psychiatry & Neurology Neurology | DX: G44.009 Cluster headache syndrome, unspecified, not intractable (principal); G47.33 Obstructive sleep apnea (adult) (pediatric) | CPT/HCPCS: 99212 ==

== ENCOUNTER → 2023-11-21 14:38 | Outpatient (REF) | payer MEDICARE, SELFPAY | LOC: HO.SL 14:38 | PROVIDERS: PCP Internal Medicine; Visit Provider Psychiatry & Neurology Neurology | DX: G47.33 Obstructive sleep apnea (adult) (pediatric) (principal) | CPT/HCPCS: 95806 ==

== ENCOUNTER → 2023-11-21 14:50 | Outpatient (BNV) | payer MEDICARE, SELFPAY | PROVIDERS: PCP Internal Medicine; Visit Provider Psychiatry & Neurology Neurology | DX: G47.33 Obstructive sleep apnea (adult) (pediatric) (principal) | CPT/HCPCS: 95806 ==

== ENCOUNTER 2023-12-06 13:47 | Outpatient (AMB) | payer MEDICARE, SELFPAY ==
--- NOTE | 2023-12-06 14:05 | A.OFFVIS_ITS ---
Vital Signs 12/06/23 14:10 Height 5 ft 10 in Weight 275 lb BMI 39.5 Intake Visit Reasons: rt breast inframammary crease wound Intake Note: This patient was referred by the Wound care center for rt breast inframammary crease wound. Pt c/o; Onset Jun 2023,reports non-healing wound under right breast, reports tannish scab, reports no drainage or discharge, reports has seen [facility] but the wound it still not healed. Accompanied by: Spouse Allergies codeine Allergy (Unknown, Verified 12/06/23 14:22) Unknown erythromycin base Allergy (Unknown, Verified 12/06/23 14:22) Unknown Medication List - Last Reconciled 12/06/23 by Massimo Reyes MD allopurinol 300 mg PO DAILY erenumab-aooe (Aimovig Autoinjector) 140 mg subcut ONCE 30 days gabapentin 1,200 mg (2 x 600 mg) PO TID 30 days magnesium oxide 400 mg PO DAILY oxycodone-acetaminophen 5-325 mg (Percocet) 1-2 tabs po qd orally daily; 30 days riboflavin (vitamin B2) 400 mg PO DAILY rosuvastatin 10 mg PO DAILY verapamil 120 mg PO TID 30 days HPI HPI rt breast inframammary crease wound: Details: 68-year-old male referred for a nonhealing wound. He has had this area with some scanty drainage and a small open wound in the inframammary crease on the right side for about 5 months now. He had been seeing the [facility] for this. He had been undergoing dressing changes with silver alginate He was referred to me because apparently the wound did does not appear to close at all . The patient describes some very scanty none purulent drainage in the area. He says he is now a little annoyed that this has not healed until now. [facility] Medical History (Updated 12/06/23 @ 15:09 by Massimo Reyes MD) Chronic wound Atherosclerotic cardiovascular disease Obstructive sleep apnea hypopnea, severe Cluster headaches Obesity Gout Surgical History History of cholecystectomy Family History Father Renal failure Mother Esophageal cancer Sister Lupus Brother End of life care Sister No problems noted. Son Substance use disorder Son Substance use disorder Social History Housing: House Alcohol intake: current Alcohol intake frequency: a few times a month Patient Tobacco Use Status: Never used Tobacco e-Cigarette/Vaping Use: Never Used Second Hand Smoke Exposure: No service: No Current occupational status: retired Cognitive needs: No Hearing needs: No Vision needs: No Review of Systems Const Denies chills and Denies fever(s) Card Denies chest pain, Denies dyspnea and Denies dyspnea on exertion Resp Denies cough, Denies dyspnea and Denies dyspnea on exertion GI Denies hematochezia and Denies change in bowel habits Denies hematuria and Denies difficulty urinating Musc Denies back pain and Denies limited range of motion Neuro Denies focal weakness and Denies convulsions Psych Denies depression and Denies mood swings Physical Exam Vital Signs: BMI result Body Mass Index 39.5 Const Other: Obese General: comfortable and no acute distress Orientation/consciousness: patient oriented x3 Neck Neck: Yes no lymphadenopathy Chest Other: Small linear open wound, about 1 cm in length, on the inframammary crease on the right side, mild induration, no fluctuance Resp Auscultation: clear to auscultation bilaterally Cardio Rhythm: regular rhythm GI Palpation (GI): Soft to palpation, nontender and no guarding Neuro General: patient oriented x3 Assessment & Plan Assessment & Plan (1) Chronic wound: Code(s): T14.8XXA - Other injury of unspecified body region, initial encounter Category: Medical Plan: He has this chronic open wound on the right chest wall as described above. He was referred for excision by the Wound Clinic pad explained to him the technique of this procedure. I was planning to do a wide excision of the areas so it may be best to do with him under monitored anesthesia care so we can check for any tracts surrounding this I explained the risks including but not limited to bleeding, infections poor healing . After discussions with him and his , he stated that he would like to see how it goes for another month. He says that this does not seem to be improving, then he will decide to proceed with excision. Coding Level of Care Code New Pt Level 3 (17652) Diagnoses Chronic wound T14.8XXA
[2023-12-06 14:10] VITALS: BMI 39.5
== END 2023-12-06 15:09 | disposition home or self-care (01) ==
PROVIDERS: PCP Internal Medicine; Visit Provider Surgery
DX: T14.8XXA Other injury of unspecified body region, initial encounter (principal)
CPT/HCPCS: 99203

== ENCOUNTER → 2023-12-06 13:47 | Outpatient (BNVA) | payer MEDICARE, SELFPAY | PROVIDERS: PCP Internal Medicine; Visit Provider Surgery | DX: S21.101A Unspecified open wound of right front wall of thorax without penetration into thoracic cavity, initial encounter (principal) | CPT/HCPCS: 99202 ==

== ENCOUNTER 2024-01-10 14:00 | Outpatient (AMB) | payer MEDICARE, SELFPAY ==
--- NOTE | 2024-01-10 14:06 | A.OFFVIS_ITS ---
Vital Signs 01/10/24 14:16 Height 5 ft 10 in Weight 271 lb BMI 38.9 Intake Visit Reasons: 1 mth follow up rt breast inframam crease wound Intake Note: This patient presents for a one month follow-up assessment for right breast inframammary crease wound. Pt c/o; Onset Jun 2023, reports the wound is still not completely healed. 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 He was being followed by the Wound Clinic and was referred to me for possible debridement. I had seen him last month and he wanted to try another month of doing silver alginate dressings. He says that the wound does not seem to have changed. He continues to have this open wound and he feels that dressing changes have been bothersome to him. [facility] Medical History Chronic wound Atherosclerotic cardiovascular disease Obstructive sleep apnea hypopnea, severe Cluster headaches Obesity Gout Surgical History History of cholecystectomy Family History Father Renal failure Mother Esophageal cancer Sister Lupus Brother End of life care Sister No problems noted. Son Substance use disorder Son Substance use disorder Social History Housing: House Alcohol intake: current Alcohol intake frequency: a few times a month Patient Tobacco Use Status: Never used Tobacco e-Cigarette/Vaping Use: Never Used Second Hand Smoke Exposure: No service: No Current occupational status: retired Cognitive needs: No Hearing needs: No Vision needs: No Review of Systems Const Denies chills and Denies fever(s) Card Denies chest pain, Denies dyspnea and Denies dyspnea on exertion Resp Denies cough, Denies dyspnea and Denies dyspnea on exertion GI Denies hematochezia and Denies change in bowel habits Denies hematuria and Denies difficulty urinating Musc Denies back pain and Denies limited range of motion Neuro Denies focal weakness and Denies convulsions Psych Denies depression and Denies mood swings Physical Exam Vital Signs: BMI result Body Mass Index 38.9 Const General: comfortable and no acute distress Orientation/consciousness: patient oriented x3 Neck Neck: Yes no lymphadenopathy Chest Other: Right inframammary region with note of an open wound, about 1.2 cm in widest dimension, hypergranulation tissue noted at the base Resp Auscultation: clear to auscultation bilaterally Cardio Rhythm: regular rhythm GI Palpation (GI): Soft to palpation, nontender and no guarding Neuro General: patient oriented x3 Office Procedures Excision Details: He was placed supine. The area of the nonhealing open wound on the right inframammary region was prepped and draped. Lidocaine 1% was used for local anesthesia. I made an elliptical incision on the skin surrounding this open wound using blade 15. I included normal-looking skin. Carried down the incision through the full-thickness of the skin and subcutaneous fat to excise this entire open wound. This was sent as a specimen. The area excised was about 1.8 cm I closed the incision with full-thickness nylon 3-0 interrupted sutures. Dressings were applied. The procedure was completed. He tolerated the procedure well. There was minimal blood loss. 71004-bmvoi/arms/legs 1.1-2cm Procedure code (CPT) selection complete Assessment & Plan Assessment & Plan (1) Chronic wound: Code(s): T14.8XXA - Other injury of unspecified body region, initial encounter Category: Medical Plan: He feels that the open wound has not changed at all. He therefore wants to proceed with excision. I explained the technique of excision of the whole nonhealing wound. I reviewed the risks including but not limited to bleeding, infections and poor healing, as well as the benefits and alternatives. He had given verbal consent Excision was done without difficulty. He was given wound care instructions. He can take Tylenol and ibuprofen for pain. I will see him for removal of sutures in about 2 weeks. Coding Level of Care Code Est Pt Level 3 (75102) Diagnoses Chronic wound T14.8XXA CPT Codes Trunk/Arms/Legs - CPT: 48489-fellj/arms/legs 1.1-2cm ([id number])
[2024-01-10 14:16] VITALS: BMI 38.9
== END 2024-01-10 14:44 | disposition home or self-care (01) ==
PROVIDERS: PCP Internal Medicine; Visit Provider Surgery
DX: L72.0 Epidermal cyst (principal); T14.8XXA Other injury of unspecified body region, initial encounter
CPT/HCPCS: 11402; 99213

== ENCOUNTER 2024-01-10 14:00 | Outpatient (REF) | payer MEDICARE, SELFPAY | END 2024-01-10 14:01 | disposition home or self-care (01) | LOC: HO.LNP 14:00 | PROVIDERS: PCP Internal Medicine; Visit Provider Surgery | DX: S21.101A Unspecified open wound of right front wall of thorax without penetration into thoracic cavity, initial encounter (principal) | CPT/HCPCS: 11402; 88304; 88305; 88312; 99212 ==

== ENCOUNTER 2024-01-30 09:23 | Outpatient (AMB) | payer MEDICARE, SELFPAY ==
--- NOTE | 2024-01-30 09:31 | MHC.OFFVIS ---
Vital Signs 01/30/24 09:33 Height 5 ft 10 in Weight 271 lb 0.016 oz BMI 38.9 Intake Visit Reasons: 2 wk follow up rt breast inframam crease wound Intake Note: This patient presents for a two week follow-up for right breast inframammary crease wound. Patient c/o; reports had yellowish-tannish discharge and some pain but this has improved within the last two days. 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 He is here to have his sutures removed. He denies significant complaints but admits to some drainage from the area. [facility] Medical History Chronic wound Atherosclerotic cardiovascular disease Obstructive sleep apnea hypopnea, severe Cluster headaches Obesity Gout Surgical History History of cholecystectomy Family History Father Renal failure Mother Esophageal cancer Sister Lupus Brother End of life care Sister No problems noted. Son Substance use disorder Son Substance use disorder Social History Housing: House Alcohol intake: current Alcohol intake frequency: a few times a month Patient Tobacco Use Status: Never used Tobacco e-Cigarette/Vaping Use: Never Used Second Hand Smoke Exposure: No service: No Current occupational status: retired Cognitive needs: No Hearing needs: No Vision needs: No Review of Systems Const Denies chills and Denies fever(s) Card Denies chest pain, Denies dyspnea and Denies dyspnea on exertion Resp Denies cough, Denies dyspnea and Denies dyspnea on exertion GI Denies hematochezia and Denies change in bowel habits Denies hematuria and Denies difficulty urinating Musc Denies back pain and Denies limited range of motion Neuro Denies focal weakness and Denies convulsions Psych Denies depression and Denies mood swings Physical Exam Vital Signs: BMI result Body Mass Index 38.9 Const General: comfortable and no acute distress Chest Other: Excision site on the right chest wall is well healing, sutures intact, no evidence of infection Assessment & Plan Assessment & Plan (1) Chronic wound: Code(s): T14.8XXA - Other injury of unspecified body region, initial encounter Category: Medical Plan: Status post excision. His path report shows inflammation, granulating tissue and an epidermal inclusion. I removed his sutures. The wound edges remained well apposed. I advised him to continue to keep the area clean and dry He can otherwise follow up on a p.r.n. basis. Coding Level of Care Code Global (69290) Diagnoses Chronic wound T14.8XXA
[2024-01-30 09:33] VITALS: BMI 38.9
== END 2024-01-30 10:03 | disposition home or self-care (01) ==
PROVIDERS: PCP Internal Medicine; Visit Provider Surgery
DX: T14.8XXA Other injury of unspecified body region, initial encounter (principal)
CPT/HCPCS: 99024

== ENCOUNTER → 2024-01-30 09:23 | Outpatient (BNVA) | payer MEDICARE, SELFPAY | PROVIDERS: PCP Internal Medicine; Visit Provider Surgery | DX: T14.8XXD Other injury of unspecified body region, subsequent encounter (principal) | CPT/HCPCS: 99212 ==

== ENCOUNTER → 2024-03-03 07:45 | Outpatient (REF) | payer MEDICARE, SELFPAY ==
--- NOTE | 2024-03-03 07:48 | CA_ITS ---
Transthoracic Echocardiogram Patient (Last, First, Middle): Aman Street F Gender: Male Date of : 1955 Age: 69 Procedure Date: 03/03/2024 Procedure Type: Transthoracic Echocardiogram Location: OP Height: 175.26 cm Weight: 122.47 kg BSA: 2.35 m2 Heart Rate: bpm BP: 156 / 80 mmHg Chief Credit Officer: BRIAN Referring MD: Chinmay Wallace MD Symptoms: I25.10 - Atherosclerotic heart disease of [place] coronary artery without... Study Quality: Adequate ECG Rhythm: Sinus Conclusions: - The left ventricular systolic function is normal. The visually estimated ejection fraction is between 55-60%. - Moderately increased right ventricular cavity size. - There is mild aortic valve regurgitation. - There is mild to moderate mitral valve regurgitation. - There is mild tricuspid valve regurgitation. - Moderate pulmonary hypertension is present. - There is mild dilatation of the ascending aorta measuring 4.00 cm. Findings Left Ventricle Normal left ventricular cavity size. There is mildly increased left ventricular wall thickness. The left ventricular systolic function is normal. The visually estimated ejection fraction is between 55-60%. There is no evidence of regional wall motion abnormalities. Diastolic function is normal for age. There is moderate septal and moderate basal asymmetric hypertrophy. LV peak GLS -23.5%. Right Ventricle Moderately increased right ventricular cavity size. There is normal right ventricular systolic function. Atria Mild biatrial enlargement. Aortic Valve There is a normal trileaflet aortic valve. There is mild calcification of the aortic valve. There is no aortic valve stenosis. There is mild aortic valve regurgitation. Mitral Valve The mitral valve appears normal. There is mild to moderate mitral valve regurgitation. There is no mitral valve stenosis. Pulmonic Valve The pulmonic valve is likely normal. There is trace pulmonic valve regurgitation. Tricuspid Valve There is mild tricuspid valve regurgitation. The right ventricular systolic pressure is 55 mmHg. Moderate pulmonary hypertension is present. Great Vessels There is mild dilatation of the ascending aorta measuring 4.00 cm. Venous The inferior vena cava is normal in size and collapses less than 50% with inspiration. Pericardium/Pleural There is no evidence of pericardial effusion. Prior Study Comparison Changes noted compared to prior study dated: 12/08/2022. Wall motion abnormalities not noted. Mitral regurgitation more prominent. Pulmonary hypertension present. Increase in right ventricular size. Measurements 2D Linear Measurements IVSd: 1.48 0.6-0.9/0.6-1.0 cm LVIDd: 5.62 3.9-5.3/4.2-5.9 cm LVIDd Index: 2.39 2.4-3.2/2.2-3.1 cm/m2 LVIDs: 3.74 2.0-3.6 cm LVPWd: 1.04 0.7-1.1 cm LA Diam: 3.90 2.7-3.8/3.0-4.0 cm LAIDs Index: 1.66 1.5-2.3 cm/m2 LV Mass: 376.32 67-162/88-224 g LV Mass Index: 160.14 43-95/49-115 g/m2 LVOT Diam: 2.20 3.0+(-)1.3 cm 2D Systolic Function EF 4C: 58.20 >55% EF 2C: 69.60 >55% EF BiP: 63.40 >55% Mitral Valve MV Pk E: 0.90 MV PK A: 0.84 MV Decel Time: 307.00 E/A: 1.10 E'Lateral: 10.30 E'Medial: 6.42 E/E' Med: 14.10 E/E' Lat: 8.80 PHT: 90.00 MVA PHT: 2.44 Decel Payne: 2.95 Aortic Valve AoV Pk Anderson: 1.78 AoV Mn Anderson: 1.35 AoV VTI: 0.47 AoV Pk Grad: 13.00 Aov Mn Grad: 8.00 EZ Cont.VTI: 2.57 LVOT LVOT Pk Anderson: 1.36 LVOT Mn Anderson: 0.92 LVOT VTI: 0.32 LVOT Pk Grad: 7.00 LVOT Mn Grad: 4.00 LVOT Diam: 2.20 LVOT Area: 3.80 Diastolic Function MV Pk E: 0.90 MV Pk A: 0.84 E/A: 1.10 E'Medial: 6.42 E/E' Med: 14.10 E' Laterial: 10.30 E/E' Lat: 8.80 Right Ventricle TAPSE (mm): 29.00 TVS' Anderson: 16.80 Tricuspid Valve TR Pk Anderson: 3.41 TR Pk Grad: 47.00 RA Press: 8.00 RVSP: 55.00 Great Vessels Aorta Sinus of Valsalva: 4.18 2.0-3.[address] [place]: 2.37 1.7-3.4 cm Ao Asc: 4.00 2.1-3.4 cm Updated in Other Vendor System with Status of Final Chinmay Wallace MD electronically signed on 03/03/2024 11:48:54 AM with status of Final
== END ==
LOC: HO.CARD 07:45
PROVIDERS: PCP Internal Medicine; Visit Provider Internal Medicine
DX: I25.10 Atherosclerotic heart disease of native coronary artery without angina pectoris (principal)
CPT/HCPCS: 93306; 93356

== ENCOUNTER → 2024-03-03 07:48 | Outpatient (BNV) | payer MEDICARE, SELFPAY | PROVIDERS: PCP Internal Medicine; Visit Provider Internal Medicine | DX: I35.1 Nonrheumatic aortic (valve) insufficiency (principal); I34.0 Nonrheumatic mitral (valve) insufficiency; I36.1 Nonrheumatic tricuspid (valve) insufficiency; I42.2 Other hypertrophic cardiomyopathy | CPT/HCPCS: 93306; 93356 ==

== ENCOUNTER 2024-04-10 06:18 | Outpatient (REF) | payer MEDICARE, SELFPAY ==
[2024-04-10 06:30] LABS: MANUAL DIFF FLAG NO
[2024-04-10 07:16] LABS: Basophils Percent Auto 0.4 % (0-2); Eosinophils Absolute Auto 0.3 X10*3/uL (0.0-0.4); Eosinophils Percent Auto 3.4 % (0-4); Hematocrit 42.2 % (42.0-52.0); Hemoglobin 14.7 g/dl (14.0-18.0); Imm Gran Abs Auto 0.02 X10*3/uL (0.00-0.03); Imm Gran Pct Auto 0.3 % (0.0-0.4); Lymphocytes Absolute Auto 2.1 X10*3/uL (1.2-4.9); Lymphocytes Percent Auto 28.3 % (20-40); Mean Corpuscular HGB Conc 34.8 g/dl (31.0-36.0); Mean Corpuscular Hemoglobin 34.3 pg (27.0-33.0); Mean Corpuscular Volume 98.6 fL (80.0-98.0); Monocytes Absolute Auto 0.5 X10*3/uL (0.1-1.2); Monocytes Percent Auto 7.2 % (2-11); Neutrophils Absolute Auto 4.5 x10*3/uL (2.0-8.3); Neutrophils Percent Auto 60.4 % (45-73); Platelet Count 190 X10*3/uL (160-400); Red Blood Count 4.28 X10*6/uL (4.60-5.80); Red Cell Distribution Width 12.5 % (11.0-16.0); White Blood Count 7.4 X10*3/uL (4.8-10.8)
[2024-04-10 07:55] LABS: Alanine Aminotransferase 26 U/L (0-40); Albumin Level 4.2 g/dL (3.5-5.0); Alkaline Phosphatase 79 U/L (39-117); Anion Gap 11 (12-20); Aspartate Amino Transferase 17 U/L (5-37); Bilirubin Total 0.6 mg/dL (0.0-1.0); Blood Urea Nitrogen 21 mg/dL (9-16); Calcium 9.4 mg/dL (8.4-10.2); Carbon Dioxide 28 mmol/L (22-29); Chloride 108 mmol/L (96-108); Cholesterol 145 mg/dL (<200); Estimated Glomerular Filt Rate > 60; Glucose Fasting 106 mg/dL (60-99); HDL Cholesterol 42 mg/dL (>40); LDL Cholesterol Calculated 52 mg/dL (<100); Potassium 4.3 mmol/L (3.3-5.1); Sodium 143 mmol/L (135-145); Total Protein 7.3 g/dL (6.5-8.0); Triglycerides 259 mg/dL (<150)
[2024-04-10 08:03] LABS: Prostate Specific Antigen Scr 0.57 ng/mL (<0.05-4.0)
[2024-04-10 08:11] LABS: Thyroid Stimulating Hormone 1.93 uIU/mL (0.32-4.0)
== END 2024-04-10 06:19 | disposition home or self-care (01) ==
LOC: HO.LAB 06:18
PROVIDERS: PCP Internal Medicine; Referring Provider Internal Medicine; Visit Provider Internal Medicine
DX: Z00.00 Encounter for general adult medical examination without abnormal findings (principal); D64.9 Anemia, unspecified; E78.5 Hyperlipidemia, unspecified; N28.9 Disorder of kidney and ureter, unspecified; M10.9 Gout, unspecified; E03.9 Hypothyroidism, unspecified; Z12.5 Encounter for screening for malignant neoplasm of prostate
CPT/HCPCS: 36415; 80053; 80061; 84153; 84443; 84550; 85025

== ENCOUNTER 2024-05-15 08:06 | Outpatient (AMB) | payer MEDICARE, SELFPAY ==
[2024-05-15 08:22] VITALS: BP 176/76; PULSE 62; BMI 39.4
--- NOTE | 2024-05-15 08:22 | MHC.OFFVIS ---
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 Accompanied by: Self / Same As Patient Allergies codeine Allergy (Unknown, Verified 01/30/24 09:35) Unknown erythromycin base Allergy (Unknown, Verified 01/30/24 09:35) Unknown Medication List - Last Reconciled 05/15/24 by Chinmay Wallace MD allopurinol 300 mg PO DAILY erenumab-aooe (Aimovig Autoinjector) 140 mg subcut ONCE 30 days gabapentin 1,200 mg (2 x 600 mg) PO TID 30 days magnesium oxide 400 mg PO DAILY oxycodone-acetaminophen 5-325 mg (Percocet) 1-2 tabs po qd orally daily; 30 days riboflavin (vitamin B2) 400 mg PO DAILY rosuvastatin 10 mg PO DAILY verapamil 120 mg PO TID 30 days HPI Comments Details: Aman returns for follow-up. In the past, he was seen for dizziness. However, there was concern for vascular disease due to family history and that led to further workup with echocardiogram and coronary CTA. For the most part he is doing fine. He no longer has any dizziness. No other complaints like chest pain. His blood pressure is quite high today but he states he frequently has this problem due to white coat hypertension but at home it is much lower. I am still not entirely clear if it is truly all white coat hypertension. According to patient, home blood pressures are somewhere in the 130s and never this high. Otherwise, he takes verapamil for headaches. Has obstructive sleep apnea on CPAP. [facility] Medical History Chronic wound Atherosclerotic cardiovascular disease Obstructive sleep apnea hypopnea, severe Cluster headaches Obesity Gout Surgical History History of cholecystectomy Family History Father Renal failure Mother Esophageal cancer Sister Lupus Brother End of life care Sister No problems noted. Son Substance use disorder Son Substance use disorder Social History Housing: House Alcohol intake: current Alcohol intake frequency: a few times a month Patient Tobacco Use Status: Never used Tobacco e-Cigarette/Vaping Use: Never Used Second Hand Smoke Exposure: No service: No Current occupational status: retired Cognitive needs: No Hearing needs: No Vision needs: No Review of Systems Const Denies chills, Denies fatigue, Denies fever(s), Denies weight gain and Denies weight loss ENT Denies dizziness Card Denies chest pain, Denies leg edema, Denies lightheadedness, Denies palpitations, Denies dyspnea on exertion, Denies orthopnea and Denies other Resp Denies cough and Denies dyspnea on exertion GI Denies hematochezia and Denies change in stool character Musc Denies abnormal gait, Denies muscle weakness, Denies numbness, Denies radiating pain into limb and Denies tingling Neuro Denies abnormal gait, Denies dizziness, Denies numbness and Denies tingling Endo Denies fatigue and Denies palpitations Physical Exam Vital Signs: Last Vital Signs Pulse 62 05/15/24 08:22 BP 176/76 H 05/15/24 08:22 BMI result Body Mass Index 39.4 Const General: comfortable and no acute distress Orientation/consciousness: patient oriented x3 HEENT Other: Unremarkable Head: Yes normal to inspection Neck Neck: Yes normal visual inspection Chest Chest palpation & inspection: normal inspection of the chest Resp Auscultation: clear to auscultation bilaterally Cardio Palpation: normal PMI Heart sounds: S1 normal heart sound present, S2 normal heart sound present, no gallops, no murmurs and no rubs GI Palpation (GI): Soft to palpation Back/Spine/Pelvis Other: unremarkable Skin General skin exam: no rashes or lesions noted Neuro General: patient oriented x3 Extrem General: Yes normal to inspection Psych Mental Status: mental status grossly normal Office Procedures EKG Details: EKG with underlying sinus rhythm at 62/Min; no significant ST-T changes; MT prolongation to 214 millisecond; [place]. [id number], Complete Assessment & Plan Assessment & Plan (1) Atherosclerotic cardiovascular disease: Code(s): I25.10 - Atherosclerotic heart disease of [place] coronary artery without angina pectoris Category: Medical (2) Obstructive sleep apnea hypopnea, severe: Code(s): G47.33 - Obstructive sleep apnea (adult) (pediatric) Category: Medical (3) Obesity: Code(s): E66.9 - Obesity, unspecified Category: Medical (4) Dyslipidemia: Code(s): E78.5 - Hyperlipidemia, unspecified Category: Medical (5) Ascending aorta enlargement: Code(s): I77.89 - Other specified disorders of arteries and arterioles Category: Medical (6) Nonrheumatic mitral valve regurgitation: Code(s): I34.0 - Nonrheumatic mitral (valve) insufficiency Category: Medical (7) Nonrheumatic aortic valve insufficiency: Code(s): I35.1 - Nonrheumatic aortic (valve) insufficiency Category: Medical Plan Cardiac studies reviewed. Echocardiogram in the past reported to have low normal LVEF at 50-55%; apex/apical anterior/apical lateral hypokinesis described but upon my review, not entirely convincing. Ascending aortic size 4.1 cm. In the repeat study, LVEF 55-60% without any obvious wall motion abnormalities. Increased right ventricular size. [id number]-dd-[id number] mitral regurgitation/mild aortic regurgitation/tricuspid regurgitation. Moderate pulmonary hypertension. Ascending aortic size 4 cm. In the coronary CTA, nothing hemodynamically significant. Cvtw-wa-kujuqiut calcific plaque in the LAD/Right coronary artery with minimal stenosis at less than 25%. Overall, treat for hypertension, stable coronary disease. He blames it on white coat hypertension but suspect he probably has some underlying hypertension, not well controlled. Start Losartan 50 mg daily and check BMP in few days. He understands and agrees. He will follow home blood pressures and also cross check with other BP readings at his pharmacy etc. Ascending aortic size minimally enlarged and not of any major consequence at this time. Probably acceptable considering his body surface area and age but warrants better blood pressure control. Valvular findings could also be from poorly controlled hypertension. With regard to dyslipidemia, continue statins. He has got severe JAMIL on CPAP. He will contact us with his blood pressure readings and we can make adjustments accordingly. Follow-up in 1 year. Orders: Orders Basic Metabolic Panel 2 Weeks I10 - Essential (primary) hypertension Medications: New losartan 50 mg PO DAILY 90 tabs 3RF Coding Level of Care Code Est Pt Level 4 (07407) Diagnoses Atherosclerotic cardiovascular disease I25.10 Obstructive sleep apnea hypopnea, severe G47.33 Obesity E66.9 Dyslipidemia E78.5 Ascending aorta enlargement I77.89 Nonrheumatic mitral valve regurgitation I34.0 Nonrheumatic aortic valve insufficiency I35.1 CPT Codes EKG - CPT: 93440-[id number], Complete ([id number])
== END 2024-05-15 08:45 | disposition home or self-care (01) ==
PROVIDERS: PCP Internal Medicine; Visit Provider Internal Medicine
DX: I25.10 Atherosclerotic heart disease of native coronary artery without angina pectoris (principal); G47.33 Obstructive sleep apnea (adult) (pediatric); E66.9 Obesity, unspecified; E78.5 Hyperlipidemia, unspecified; I77.89 Other specified disorders of arteries and arterioles; I34.0 Nonrheumatic mitral (valve) insufficiency; I35.1 Nonrheumatic aortic (valve) insufficiency
CPT/HCPCS: 93010; 99214

== ENCOUNTER → 2024-05-15 08:06 | Outpatient (BNVA) | payer MEDICARE, SELFPAY | PROVIDERS: PCP Internal Medicine; Visit Provider Internal Medicine | DX: I25.10 Atherosclerotic heart disease of native coronary artery without angina pectoris (principal); I77.89 Other specified disorders of arteries and arterioles; I34.0 Nonrheumatic mitral (valve) insufficiency; I35.1 Nonrheumatic aortic (valve) insufficiency; I10 Essential (primary) hypertension; G47.33 Obstructive sleep apnea (adult) (pediatric); E66.9 Obesity, unspecified; E78.5 Hyperlipidemia, unspecified; Z99.89 Dependence on other enabling machines and devices | CPT/HCPCS: 93005; 99212 ==

== ENCOUNTER 2024-05-29 15:25 | Outpatient (REF) | payer MEDICARE, SELFPAY ==
[2024-05-29 17:29] LABS: Anion Gap 10 (12-20); Blood Urea Nitrogen 24 mg/dL (9-16); Calcium 8.9 mg/dL (8.4-10.2); Carbon Dioxide 29 mmol/L (22-29); Chloride 108 mmol/L (96-108); Estimated Glomerular Filt Rate > 60; Glucose Random 101 mg/dL (60-115); Potassium 4.3 mmol/L (3.3-5.1); Sodium 143 mmol/L (135-145)
== END 2024-05-29 15:26 | disposition home or self-care (01) ==
LOC: HO.LAB 15:25
PROVIDERS: PCP Internal Medicine; Visit Provider Internal Medicine
DX: I10 Essential (primary) hypertension (principal)
CPT/HCPCS: 36415; 80048

== ENCOUNTER 2024-07-18 08:27 | Outpatient (AMB) | payer MEDICARE, SELFPAY ==
--- NOTE | 2024-07-18 08:40 | MHC.PC.OV ---
Vital Signs 07/18/24 08:41 Height 5 ft 10 in Weight 280 lb BMI 40.2 BP 130/72 Blood Pressure Location Lt brachial Position Sitting Pulse 65 Pulse Source Pulse Oximeter Pulse Oximetry (%) 96 Oxygen Delivery Method Room Air Intake Visit Reasons: Annual exam Intake Note: Patient is here today for a physical. 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 Accompanied by: Self / Same As Patient Allergies codeine Allergy (Unknown, Verified 07/18/24 08:41) Unknown erythromycin base Allergy (Unknown, Verified 07/18/24 08:41) Unknown Medication List - Last Reconciled 07/18/24 by Ronan Camejo MD allopurinol 300 mg PO DAILY erenumab-aooe (Aimovig Autoinjector) 140 mg subcut ONCE 30 days gabapentin 1,200 mg (2 x 600 mg) PO TID 30 days losartan 50 mg PO DAILY magnesium oxide 400 mg PO DAILY oxycodone-acetaminophen 5-325 mg (Percocet) 1-2 tabs po qd orally daily; 30 days riboflavin (vitamin B2) 400 mg PO DAILY rosuvastatin 10 mg PO DAILY verapamil 120 mg PO TID 30 days Tobacco use date assessed: 07/18/24 Fall risk assessment: No Falls in past year Last assessed Fall Risk: 07/18/24 Dental Screening Dental Screen Date: 07/18/24 Did you have a dental visit in the last 12 months?: Yes Did you have a dental problem in the last 6 months where you did not have access to dental care?: No Was dental information given to patient?: Patient has dentist HPI Annual exam HPI Details gout and hypertension; chronic cluster headaches PFSH Medical History Chronic wound Atherosclerotic cardiovascular disease Obstructive sleep apnea hypopnea, severe Cluster headaches Obesity Gout Surgical History History of cholecystectomy Family History Father Renal failure Mother Esophageal cancer Sister Lupus Brother End of life care Sister No problems noted. Son Substance use disorder Son Substance use disorder Social History Housing: House Alcohol intake: current Alcohol intake frequency: a few times a month Patient Tobacco Use Status: Never used Tobacco e-Cigarette/Vaping Use: Never Used Second Hand Smoke Exposure: No service: No Current occupational status: retired Cognitive needs: No Hearing needs: No Vision needs: No Questionnaire PHQ-9 Over the last 2 weeks, how often have you been bothered by any of the following problems? 1. Little interest or pleasure in doing things: not at all 2. Feeling down, depressed, or hopeless: not at all 3. Trouble falling or staying asleep, or sleeping too much: not at all 4. Feeling tired or having little energy: not at all 5. Poor appetite or overeating: not at all 6. Feeling bad about yourself - or that you are a failure or have let yourself or your family down: not at all 7. Trouble concentrating on things, such as reading the newspaper or watching television: not at all 8. Moving or speaking so slowly that other people could have noticed. Or the opposite - being so fidgety or restless that you have been moving around a lot more than usual: not at all 9. Thoughts that you would be better off or of hurting yourself in some way: not at all Total score: 0 Depression Screening Interpretation: Negative Depression Screening Done: Yes Source: Developed by Drs. Anoop Lang, Susan Harrell, Marcial Tamez and colleagues, with an educational marisol from [employer]. Thrive Questionnaire Date Thrive assessed: 07/18/24 I am a: Patient What is your living situation today?: I have a steady place to live Within the past 12 months, did the food you bought not last and you didn't have the money to get more?: Never true Within the past 12 months, did you worry whether your food would run out before you got money to buy more?: Never true Do you have trouble paying for medicines?: I choose not to answer this question Do you have trouble getting transportation to medical appointments?: No Do you have trouble paying your heating and electricity bill?: No Do you have trouble taking care of your child, family member or friend?: No Do you have trouble with day-to-day activities such as bathing, preparing meals, shopping, managing finances, etc.?: No Are you currently unemployed and looking for a job?: Yes Are you interested in more education?: No Please select the resources that you would like help with: None Currently or been in a relationship where the following occur: No concerns reported THRIVE Score: 0 AUDIT C Alcohol Use Questionnaire (AUDIT-C) 1. How often do you have a drink containing alcohol?: 2-4 times a month 2. How many drinks containing alcohol do you have on a typical day when you are drinking?: 1 or 2 3. How often do you have six or more drinks on one occasion?: Never Total Score: 2 TONIO-7 AMB Questionnaire TONIO-7 Date TONIO - 7 assessed: 07/18/24 Feeling nervous, anxious, or on edge: 1 = Several days Not being able to stop or control worryin = Not at all Worrying too much about different things: 1 = Several days Trouble relaxin = Several days Being so restless that it is hard to sit still: 1 = Several days Becoming easily annoyed or irritable: 0 = Not at all Feeling afraid as if something awful might happen: 0 = Not at all Total TONIO-7 score (0-4 normal; 5-9 mild; 10-14 moderate; 15-21 severe): 4 Source: Developed by Drs. Anoop Lang, Susan Harrell, Marcial Tamez and colleagues, with an educational marisol from [employer]. Review of Systems Const Denies chills, Denies fatigue, Denies headache(s) and Denies weight loss Eyes Denies change in vision, Denies diplopia and Denies eye pain ENT Denies vertigo, Denies dizziness, Denies headache(s) and Denies nasal discharge Card Denies chest pain, Denies rapid heart rate and Denies dyspnea on exertion Resp Denies chest congestion, Denies cough, Denies pain with cough and Denies dyspnea on exertion GI Denies abdominal pain, Denies hematochezia and Denies change in bowel habits Musc Denies myalgias, Denies arthralgias and Denies joint swelling Skin/Breast Denies lesions and Denies unusual bruising Neuro Denies vertigo, Denies dizziness, Denies headache(s) and Denies focal weakness Endo Denies fatigue Physical exam (Primary Care) Vital Signs: Last Vital Signs Pulse 65 07/18/24 08:41 BP 130/72 07/18/24 08:41 Pulse Ox 96 07/18/24 08:41 Oxygen Delivery Method Room Air 07/18/24 08:41 BMI result Body Mass Index 40.2 Tobacco/Smoking Status: Tobacco use Status Tobacco use date assessed 07/18/24 07/18/24 08:46 Patient Tobacco Use Status Never used Tobacco 07/18/24 08:46 e-Cigarette/Vaping Use Never Used 07/18/24 08:46 PHQ-9: PHQ-9 Score PHQ-9: Total score 0 07/18/24 08:46 Depression Screening Interpretation: Negative Thrive Assessment: Date of Thrive Assessment Date Thrive assessed 07/18/24 07/18/24 08:46 Currently or been in a relationship where the following occur: No concerns reported Const General: cooperative, healthy appearing and no acute distress Orientation/consciousness: oriented to person, oriented to place and oriented to time HENMT Head: Yes normal to inspection, Yes normocephalic and Yes atraumatic Mouth: Normal oral and palatal mucosa present and tongue normal Throat: Yes posterior oropharynx normal and Yes uvula midline Eyes General: appearance normal, both eyes and all related structures Neck Neck: Yes normal visual inspection, Yes full ROM and Yes no lymphadenopathy Thyroid: Thyroid normal Carotids: normal carotid upstroke Chest Chest palpation & inspection: normal inspection of the chest Resp Effort & Inspection: normal respiratory effort and able to speak in complete sentences Auscultation: clear to auscultation bilaterally Cardio Jugular venous distension: no JVD Palpation: normal PMI Rate: regular rate Rhythm: regular rhythm Heart sounds: S1 normal heart sound present and S2 normal heart sound present GI Inspection: Yes normal to inspection Palpation (GI): Soft to palpation and No hepatosplenomegaly present Auscultation: normal bowel sounds General: Yes no CVA tenderness Back/Spine/Pelvis Back: no CVA tenderness Skin General skin exam: no rashes or lesions noted Neuro General: oriented to person, oriented to place and oriented to time Extrem General: Yes normal to inspection and Yes full ROM Coding Level of Care Code Est Pt Prev Care >65y(82964) Diagnoses Physical exam Z00.00 Gout M10.9 Cluster headaches G44.009 Obstructive sleep apnea hypopnea, severe G47.33 Hypertension I10 Assessment & Plan Assessment & Plan (1) Physical exam: Code(s): Z00.00 - Encounter for general adult medical examination without abnormal findings Category: Medical Plan: stable; do labs (2) Gout: Code(s): M10.9 - Gout, unspecified Category: Medical Plan: stable; same rx (3) Cluster headaches: Code(s): G44.009 - Cluster headache syndrome, unspecified, not intractable Category: Medical Plan: as per neurology (4) Obstructive sleep apnea hypopnea, severe: Code(s): G47.33 - Obstructive sleep apnea (adult) (pediatric) Category: Medical Plan: cont CPAP (5) Hypertension: Code(s): I10 - Essential (primary) hypertension Category: Medical Plan: stable; same rx Medications: New zolpidem (Ambien) 5 mg PO BEDTIME PRN 30 tabs 2RF sleep
[2024-07-18 08:41] VITALS: BP 130/72; PULSE 65; O2SAT 96; BMI 40.2
== END 2024-07-18 12:13 | disposition home or self-care (01) ==
PROVIDERS: PCP Internal Medicine; Visit Provider Internal Medicine
DX: Z00.00 Encounter for general adult medical examination without abnormal findings (principal); M10.9 Gout, unspecified; G44.009 Cluster headache syndrome, unspecified, not intractable; G47.33 Obstructive sleep apnea (adult) (pediatric); I10 Essential (primary) hypertension

== ENCOUNTER → 2024-07-18 08:27 | Outpatient (BNVA) | payer MEDICARE, SELFPAY | PROVIDERS: PCP Internal Medicine; Visit Provider Internal Medicine | DX: Z00.00 Encounter for general adult medical examination without abnormal findings (principal); M10.9 Gout, unspecified; G44.009 Cluster headache syndrome, unspecified, not intractable; G47.33 Obstructive sleep apnea (adult) (pediatric); I10 Essential (primary) hypertension | CPT/HCPCS: 96127; 99397 ==

== ENCOUNTER 2024-09-10 13:25 | Outpatient (AMB) | payer MEDICARE, SELFPAY ==
--- NOTE | 2024-09-10 13:50 | A.OFFVIS_ITS ---
Vital Signs 09/10/24 13:51 Height 5 ft 10 in Weight 282 lb BMI 40.5 BP 158/82 H Blood Pressure Location Rt brachial Pulse 74 Pulse Source Pulse Oximeter Pulse Oximetry (%) 98 Oxygen Delivery Method Room Air Intake Visit Reasons: 3 mon follow up. Ok per Intake Note: patient following up sleep study 11/28/23. Allergies codeine Allergy (Unknown, Verified 09/10/24 13:54) Unknown erythromycin base Allergy (Unknown, Verified 09/10/24 13:54) Unknown Medication List - Last Reconciled 09/10/24 by Kayla Holt MD allopurinol 300 mg PO DAILY ciprofloxacin HCl (Cipro) 250 mg PO BID erenumab-aooe (Aimovig Autoinjector) 140 mg subcut ONCE 30 days gabapentin 1,200 mg (2 x 600 mg) PO TID 30 days losartan 50 mg PO DAILY magnesium oxide 400 mg PO DAILY oxycodone-acetaminophen 5-325 mg (Percocet) 1-2 tabs po qd orally daily; 30 days riboflavin (vitamin B2) 400 mg PO DAILY rosuvastatin 10 mg PO DAILY verapamil 120 mg PO TID 30 days zolpidem (Ambien) 5 mg PO BEDTIME PRN HPI Comments Details: 69 y/o male patient presents for follow up of chronic cluster headache, migraines and sleep apnea. Patient is on aimovig 140mg q monthly . He was tried on triptans but had chest tightness. [place] and high flow oxygen did not work. He is unable to tolerate topiramate- due to tingling in his distal extremities He did not trial nurtec yet due to GI issues.He is also on verapramil which increases his nurtec levels so he did not start. Patient has constipation but relieved with use of stool softeners and benefiber. Pt has 2 headaches a night - 1st is mild , 2nd is around 3 am and it is more severe headache with tearing, it lasts 45 min-60min. He takes Percocet for the first headache, and he can sleep with it. He has days when he has 1 headache - usually 1-2/week He wakes up 3am because of the second headache and walking around, it relieves the headache. He is complaint with CPAP.But he has trouble using it after his second headache . [facility] Medical History Chronic wound Atherosclerotic cardiovascular disease Obstructive sleep apnea hypopnea, severe Cluster headaches Obesity Gout Surgical History History of cholecystectomy Family History Father Renal failure Mother Esophageal cancer Sister Lupus Brother End of life care Sister No problems noted. Son Substance use disorder Son Substance use disorder Social History Housing: House Alcohol intake: current Alcohol intake frequency: a few times a month Patient Tobacco Use Status: Never used Tobacco e-Cigarette/Vaping Use: Never Used Second Hand Smoke Exposure: No service: No Current occupational status: retired Cognitive needs: No Hearing needs: No Vision needs: No Physical Exam Vital Signs: Last Vital Signs Pulse 74 09/10/24 13:51 BP 158/82 H 09/10/24 13:51 Pulse Ox 98 09/10/24 13:51 Oxygen Delivery Method Room Air 09/10/24 13:51 BMI result Body Mass Index 40.5 Const General: cooperative, healthy appearing and no acute distress Nutritional Appearance: obese Orientation/consciousness: patient oriented x3 Neuro General: patient oriented x3, gait normal, tone normal, moves all extremities, no focal motor deficits and CN's II-XI intact bilaterally Assessment & Plan Assessment & Plan (1) Cluster headaches: Code(s): G44.009 - Cluster headache syndrome, unspecified, not intractable Category: Medical Qualifiers: Headache chronicity pattern: episodic headache Intractability: intractable Qualified Code(s): G44.011 - Episodic cluster headache, intractable (2) Obstructive sleep apnea hypopnea, severe: Code(s): G47.33 - Obstructive sleep apnea (adult) (pediatric) Category: Medical (3) Chronic migraine without aura: Code(s): G43.709 - Chronic migraine without aura, not intractable, without status migrainosus Category: Medical Qualifiers: Status migrainosus presence: without status migrainosus Intractability: not intractable Qualified Code(s): G43.709 - Chronic migraine without aura, not intractable, without status migrainosus Plan Aimovig 140mg sq monthly Continue percocet qhs Continue to take verapamil, and vitamin B2. Continue to use APAP at 5-50skU1C. Compliance stressed, nightly and more than 4 hours. Coding Level of Care Code Est Pt Level 4 (18358) Diagnoses Intractable episodic cluster headache G44.011 Headache chronicity pattern: episodic headache Intractability: intractable Obstructive sleep apnea hypopnea, severe G47.33 Chronic migraine without aura without status migrainosus, not intractable G43.709 Status migrainosus presence: without status migrainosus Intractability: not intractable
[2024-09-10 13:51] VITALS: BP 158/82; PULSE 74; O2SAT 98; BMI 40.5
== END 2024-09-10 14:13 | disposition home or self-care (01) ==
LOC: HO.HSMS 13:25
PROVIDERS: PCP Internal Medicine; Visit Provider Psychiatry & Neurology Neurology
DX: G44.011 Episodic cluster headache, intractable (principal); G47.33 Obstructive sleep apnea (adult) (pediatric); G43.709 Chronic migraine without aura, not intractable, without status migrainosus
CPT/HCPCS: 99214

== ENCOUNTER → 2024-09-10 13:25 | Outpatient (BNVA) | payer MEDICARE, SELFPAY | PROVIDERS: PCP Internal Medicine; Visit Provider Psychiatry & Neurology Neurology | DX: G44.011 Episodic cluster headache, intractable (principal); G43.709 Chronic migraine without aura, not intractable, without status migrainosus; G47.33 Obstructive sleep apnea (adult) (pediatric); Z99.89 Dependence on other enabling machines and devices | CPT/HCPCS: 99212 ==

== ENCOUNTER 2025-01-27 07:50 | Outpatient (REF) | payer MEDICARE, SELFPAY ==
--- OUTSIDE RECORDS SUMMARY | 2025-01-27 07:53 | XMS_ITS | Patient Health Record ---
[facility] Address [address] [place] [address] Care Team Providers Care Windows Software Developer Name Role Phone Ronan Camejo MD Primary Care Provider Unavaila Bobo Lord Unavailable [phone] Allergies Allergen (clinical drug ingredient) Drug/Non Drug Allergy documented on EMR Reaction Allergy Type Onset Date Status Biaxin makes pt ill Drug Allergy Acti ve codeine Codeine nausea Drug Allergy Active erythromycin Erythromycin makes pt ill Drug Allergy Active Reason For Referral No Information Medications Medication SIG (Take, Route, Fr equency, Duration) Notes Start Date End Date Status Neurontin 600 MG 1 tablet Orally thre e times a day Active Allopurinol 300 MG 1 tablet Orally Once a day; Duration: 30 day(s) Active Cephalexin 500 MG 1 tablet Orally Twic e a day; Duration: 10 day(s) Active Percocet 5-325 MG 1 tablet as needed O rally once a day Active Verapamil HCl 120 MG 1 tablet Orally Thr ee times a day; Duration: 30 day(s) Active Riboflavin 400 MG 1 capsule Orally Onc e a day; Duration: 30 day(s) Active KlonoPIN 0.5 MG 1/2 tablet at bedtim e Orally Once a day Active Social History Tobacco Use: Social History Observation Description Date Details (start date - stop date) Never Smoker NA - NA Tobacco Use/Smoking Question Answer Notes Are you a: nonsmoker Alcohol Screen Question Answer Notes Did you have a drink contain ing alcohol in the past year? Yes How often did you have a dri nk containing alcohol in the past year? Monthly or less (1 point) How many drinks did you have on a typical day when you were drinking in the past year? 1 or 2 drinks (0 point) Points 1 Interpretation Negative Tobacco use other than smoking: Question Answer Notes Are you an other tobacco user? No Plan Of Treatment Pending Test Test Name Order Date I&D ABSCESS- SIMPLE,SINGLE 021 Insurance Providers Payer Name Payer Address Payer Phone Subscriber Number Group Number Insured Name Patient Relationship to Insured Coverage Start Date [facility]age End Date [facility] [address] [place] [id number] Self - patient is the insured Medical (General) History Medical History History ICD Code Anxiety Gall bladder problems Gout Headaches/Migraines- chronic cluster hea daches Measles Mumps Chicken pox Surgical History Surgery Date(Month/Year) gall bladder laproscope shoulder impingement surgery
[2025-01-27 09:08] LABS: Alanine Aminotransferase 26 U/L (0-40); Albumin Level 4.3 g/dL (3.5-5.0); Alkaline Phosphatase 70 U/L (39-117); Anion Gap 12 (12-20); Aspartate Amino Transferase 22 U/L (5-37); Blood Urea Nitrogen 23 mg/dL (9-16); Calcium 9.1 mg/dL (8.4-10.2); Carbon Dioxide 28 mmol/L (22-29); Chloride 107 mmol/L (96-108); Cholesterol 148 mg/dL (<200); Estimated Glomerular Filt Rate > 60; HDL Cholesterol 42 mg/dL (>40); Potassium 4.4 mmol/L (3.3-5.1); Sodium 143 mmol/L (135-145); Total Protein 6.8 g/dL (6.5-8.0); Triglycerides 191 mg/dL (<150)
== END 2025-01-27 07:51 | disposition home or self-care (01) ==
LOC: HO.LAB 07:50
PROVIDERS: Visit Provider Internal Medicine
DX: E78.2 Mixed hyperlipidemia (principal); I25.10 Atherosclerotic heart disease of native coronary artery without angina pectoris
CPT/HCPCS: 36415; 80053; 80061; 83721

== ENCOUNTER 2025-03-16 08:45 | Outpatient (REF) | payer MEDICARE, SELFPAY ==
[2025-03-16 10:26] LABS: MANUAL DIFF FLAG NO
--- OUTSIDE RECORDS SUMMARY | 2025-03-16 10:51 | XMS_ITS | Patient Health Record ---
[facility] Address [address] [place] [address] Care Team Providers Care [employer] Book Server Name Role Phone Ronan Camejo MD Primary Care Provider Unavaila Bobo Lord Unavailable [phone] Allergies Allergen (clinical drug ingredient) Drug/Non Drug [...] Insured Coverage Start Date Coverage End Date [facility] Others [address] [place] [id number] Self - patient is the insured Medical (General) History Medical History History ICD Code Anxiety Gall bladder problems Gout Headaches/Migraines- chronic cluster hea daches Measles Mumps Chicken pox Surgical History Surgery Date(Month/Year) gall bladder laproscope shoulder impingement surgery
[2025-03-16 11:01] LABS: Hematocrit 41.0 % (42.0-52.0); Hemoglobin 14.3 g/dl (14.0-18.0); Imm Gran Abs Auto 0.03 X10*3/uL (0.00-0.03); Imm Gran Pct Auto 0.4 % (0.0-0.4); Lymphocytes Absolute Auto 1.5 X10*3/uL (1.2-4.9); Mean Corpuscular HGB Conc 34.9 g/dl (31.0-36.0); Mean Corpuscular Hemoglobin 34.2 pg (27.0-33.0); Mean Corpuscular Volume 98.1 fL (80.0-98.0); NRBC Abs Auto 0.000 X10*3/uL (0.0-0.012); NRBC Pct Auto 0.0 /100WBC (0.0-0.2); Platelet Count 182 X10*3/uL (160-400); Red Blood Count 4.18 X10*6/uL (4.60-5.80); White Blood Count 7.1 X10*3/uL (4.8-10.8)
[2025-03-16 11:06] LABS: Hemoglobin A1C 150.2763 umol/L
[2025-03-23 15:48] LABS: PSA, Ultra Sensitive 0.57 ng/mL
== END 2025-03-16 08:46 | disposition home or self-care (01) ==
LOC: HO.LAB 08:45
DX: Z00.00 Encounter for general adult medical examination without abnormal findings (principal); Z13.29 Encounter for screening for other suspected endocrine disorder; Z13.1 Encounter for screening for diabetes mellitus; Z12.5 Encounter for screening for malignant neoplasm of prostate; I25.10 Atherosclerotic heart disease of native coronary artery without angina pectoris; E78.5 Hyperlipidemia, unspecified; I35.0 Nonrheumatic aortic (valve) stenosis; I35.1 Nonrheumatic aortic (valve) insufficiency; E66.9 Obesity, unspecified; M10.9 Gout, unspecified; G43.709 Chronic migraine without aura, not intractable, without status migrainosus; G47.33 Obstructive sleep apnea (adult) (pediatric); Z79.891 Long term (current) use of opiate analgesic; Z79.899 Other long term (current) drug therapy
CPT/HCPCS: 36415; 83036; 84153; 84443; 85025; 96127; 99397

== ENCOUNTER 2025-03-16 08:45 | Outpatient (AMB) | payer MEDICARE, SELFPAY ==
--- NOTE | 2025-03-16 08:47 | MHC.PC.OV ---
Vital Signs 03/16/25 08:48 03/16/25 09:34 Height 5 ft 10 in Weight 285 lb BMI 40.9 BP 142/98 H 156/82 H Blood Pressure Location Lt brachial Lt brachial Position Sitting Sitting Pulse 73 Pulse Oximetry (%) 95 Oxygen Delivery Method Room Air Intake Visit Reasons: Transfer care from from Dr. Camejo Follow Up Recovery Room Nurse Required: No Accompanied by: Self / Same As Patient Allergies codeine Allergy (Unknown, Verified 03/16/25 09:19) Unknown erythromycin base Allergy (Unknown, Verified 03/16/25 09:19) Unknown Medication List - Last Reconciled 03/16/25 by Stefany Tobias PA-C allopurinol 300 mg PO DAILY ciprofloxacin HCl (Cipro) 250 mg PO BID erenumab-aooe (Aimovig Autoinjector) 140 mg subcut ONCE 30 days gabapentin 1,200 mg (2 x 600 mg) PO TID 30 days losartan 50 mg PO DAILY magnesium oxide 400 mg PO DAILY oxycodone-acetaminophen 5-325 mg (Percocet) 1-2 tabs po qd orally daily; 30 days MDD 5mg -325mg tablet riboflavin (vitamin B2) 400 mg PO DAILY rosuvastatin 10 mg PO DAILY verapamil 120 mg PO TID 30 days zolpidem (Ambien) 5 mg PO BEDTIME PRN Tobacco use date assessed: 03/16/25 Fall risk assessment: No Falls in past year Last assessed Fall Risk: 03/16/25 Dental Screening Dental Screen Date: 03/16/25 Did you have a dental visit in the last 12 months?: Yes Did you have a dental problem in the last 6 months where you did not have access to dental care?: No Was dental information given to patient?: Patient has dentist HPI Transfer care from from Dr. Camejo Follow Up HPI Details 70-year-old male with past medical history of obstructive sleep apnea, obesity, chronic migraine, arthrosclerotic cardiovascular disease, hypertension, dyslipidemia, aortic valve insufficiency last seen by Dr. Camejo 06/2024 coming in for transfer of care. In review of the notes, patient was seen by Neurology 08/2024 for cluster headaches and obstructive sleep apnea continued on Percocet, Aimovig, verapamil and vitamin B2 and continue with CPAP. Presenting for a routine wellness visit and management of chronic conditions. The patient experiences cluster headaches almost nightly, sometimes up to three times per night, with occasional nights without headaches. He manages the pain by walking briskly and has been prescribed Aimovig, gabapentin, magnesium, Percocet, and verapamil for management. The patient has sleep apnea and uses a CPAP machine, although he discontinues its use after the onset of a headache due to discomfort from the pressure. The patient has a history of hypertension, managed with losartan. He experiences white coat syndrome, leading to elevated readings in clinical settings, but reports normal readings at home. The patient has a hernia that is not currently causing any symptoms. colonoscopy: Cologuard done 2022 PSA: due and ordered today vaccines: [facility] eye doctor: bianca dye/ [facility] Medical History Chronic wound Atherosclerotic cardiovascular disease Obstructive sleep apnea hypopnea, severe Cluster headaches Obesity Gout Surgical History History of cholecystectomy Family History Father Renal failure Mother Esophageal cancer Sister Lupus Brother End of life care Sister No problems noted. Son Substance use disorder Son Substance use disorder Social History Housing: House Alcohol intake: current Alcohol intake frequency: a few times a month Patient Tobacco Use Status: Never used Tobacco e-Cigarette/Vaping Use: Never Used Second Hand Smoke Exposure: No service: No Current occupational status: retired Cognitive needs: No Hearing needs: No Vision needs: No Questionnaire PHQ-9 Over the last 2 weeks, how often have you been bothered by any of the following problems? 1. Little interest or pleasure in doing things: not at all 2. Feeling down, depressed, or hopeless: not at all 3. Trouble falling or staying asleep, or sleeping too much: several days 4. Feeling tired or having little energy: not at all 5. Poor appetite or overeating: not at all 6. Feeling bad about yourself - or that you are a failure or have let yourself or your family down: not at all 7. Trouble concentrating on things, such as reading the newspaper or watching television: not at all 8. Moving or speaking so slowly that other people could have noticed. Or the opposite - being so fidgety or restless that you have been moving around a lot more than usual: not at all 9. Thoughts that you would be better off or of hurting yourself in some way: not at all Total score: 1 Depression Screening Interpretation: Negative Depression Screening Done: Yes 52554 - PHQ-9 Billing: Yes Source: Developed by Drs. Anoop Lang, Susan Harrell, Marcial Tamez and colleagues, with an educational marisol from [employer]. Thrive Questionnaire Date Thrive assessed: 03/09/25 I am a: Patient What is your living situation today?: I have a steady place to live Within the past 12 months, did the food you bought not last and you didn't have the money to get more?: Never true Within the past 12 months, did you worry whether your food would run out before you got money to buy more?: Never true Do you have trouble paying for medicines?: No Do you have trouble getting transportation to medical appointments?: No Do you have trouble paying your heating and electricity bill?: No Do you have trouble taking care of your child, family member or friend?: No Do you have trouble with day-to-day activities such as bathing, preparing meals, shopping, managing finances, etc.?: No Are you currently unemployed and looking for a job?: I choose not to answer this question Are you interested in more education?: No Please select the resources that you would like help with: None Currently or been in a relationship where the following occur: No concerns reported and I choose not to answer THRIVE Score: 0 AUDIT C Alcohol Use Questionnaire (AUDIT-C) 1. How often do you have a drink containing alcohol?: Never 3. How often do you have six or more drinks on one occasion?: Never Total Score: 0 TONIO-7 AMB Questionnaire TONIO-7 Date TONIO - 7 assessed: 07/18/24 Feeling nervous, anxious, or on edge: 0 = Not at all Not being able to stop or control worryin = Not at all Worrying too much about different things: 0 = Not at all Trouble relaxin = Not at all Being so restless that it is hard to sit still: 0 = Not at all Becoming easily annoyed or irritable: 0 = Not at all Feeling afraid as if something awful might happen: 0 = Not at all Total TONIO-7 score (0-4 normal; 5-9 mild; 10-14 moderate; 15-21 severe): 0 Source: Developed by Drs. Anoop Lang, Susan Harrell, Marcial Tamez and colleagues, with an educational marisol from [employer]. Review of Systems Const Denies body aches, Denies fatigue, Denies fever(s), Denies frequent falls, Reports headache(s) (nightly ) and Denies weakness Eyes Reports no additional complaints, Denies change in vision and Reports requires corrective lenses (at nighttime) ENT Denies dysphagia, Denies dizziness, Denies facial pain, Reports headache(s) (nightly ) and Denies odynophagia Card Denies chest pain, Denies syncope, Denies irregular heart rhythm, Denies leg edema, Denies lightheadedness and Denies dyspnea Resp Denies cough and Denies dyspnea GI Denies abdominal pain, Reports constipation, Denies dysphagia, Denies dyspepsia, Denies diarrhea, Denies nausea, Denies odynophagia and Denies vomiting Denies dysuria, Denies urinary frequency, Denies urinary hesitancy and Denies urinary urgency Musc Denies back pain Skin/Breast Reports system reviewed and no additional complaints, except as documented Neuro Denies dizziness, Denies syncope, Denies frequent falls, Reports headache(s) (nightly ) and Denies weakness Psych Reports no additional complaints Endo Denies fatigue Physical exam (Primary Care) Vital Signs: Last Vital Signs Pulse 73 03/16/25 08:48 BP 156/82 H 03/16/25 09:34 Pulse Ox 95 03/16/25 08:48 Oxygen Delivery Method Room Air 03/16/25 08:48 BMI result Body Mass Index 40.9 Tobacco/Smoking Status: Tobacco use Status Tobacco use date assessed 03/16/25 03/16/25 08:52 Patient Tobacco Use Status Never used Tobacco 03/16/25 08:52 e-Cigarette/Vaping Use Never Used 03/16/25 08:52 PHQ-9: PHQ-9 Score PHQ-9: Total score 1 03/17/25 07:48 Depression Screening Interpretation: Negative Thrive Assessment: Date of Thrive Assessment Date Thrive assessed 03/09/25 03/16/25 08:52 Currently or been in a relationship where the following occur: No concerns reported and I choose not to answer Const General: cooperative, healthy appearing, comfortable and no acute distress Orientation/consciousness: patient oriented x3 [facility] Head: Yes normocephalic Ears: hearing grossly normal bilaterally General nose exam: Normal external nose present Face and sinus: Yes normal facial exam and Yes sinuses nontender Mouth: Normal oral and palatal mucosa present and tongue normal Throat: Yes posterior oropharynx normal Eyes General: appearance normal, both eyes and all related structures Conjunctivae: conjunctivae normal Pupils: Equal, round and reactive pupils present EOM: EOMs intact bilaterally and No Nystagmus present Neck Neck: Yes full ROM and Yes no lymphadenopathy Chest Chest palpation & inspection: normal inspection of the chest Resp Effort & Inspection: normal respiratory effort Auscultation: clear to auscultation bilaterally, no crackles, no rales, no rhonchi and no wheezes Cardio Rate: regular rate Rhythm: regular rhythm Peripheral pulses: radial pulses present and dorsalis pedis present GI Inspection: Yes normal to inspection and No Abdominal wall edema Palpation (GI): Soft to palpation, not firm and nontender Auscultation: normal bowel sounds Rectal Exam - Male: Yes deferred General: Yes no CVA tenderness Back/Spine/Pelvis Back: no CVA tenderness Skin General skin exam: no rashes or lesions noted Neuro General: patient oriented x3 Cranial nerves: Yes Equal, round and reactive pupils present, Yes Midline tongue present, Yes Ability to bilaterally elevate shoulders present and No Nystagmus present Gait exam (Neuro): Normal gait present Extrem General: Yes normal to inspection, Yes full ROM and No edema Psych Speech and movement: Normal speech and movement present Affect: normal affect Attitude: cooperative Insight: Good insight present (Psych) Judgement: Good judgement present (Psych) Coding Level of Care Code Est Pt Prev Care >65y(93757) Diagnoses Physical exam Z00.00 Hypertension I10 Nonrheumatic mitral valve regurgitation I34.0 Nonrheumatic aortic valve insufficiency I35.1 Atherosclerotic cardiovascular disease I25.10 Obesity E66.9 Gout M10.9 Chronic migraine without aura without status migrainosus, not intractable G43.709 Intractability: not intractable Status migrainosus presence: without status migrainosus Obstructive sleep apnea hypopnea, severe G47.33 Additional Codes PHQ-9 - 10141 - PHQ-9 Billing: Yes ([id number]) Assessment & Plan Assessment & Plan (1) Physical exam: Code(s): Z00.00 - Encounter for general adult medical examination without abnormal findings Category: Medical Plan: Patient is up-to-date on all recommended routine screenings and vaccinations for his age. I did order updated blood work as he is due for PSA as well as other labs. Healthy diet and regular exercise is encouraged. (2) Hypertension: Code(s): I10 - Essential (primary) hypertension Category: Medical Plan: Continue on current blood pressure medication. Avoid salt intake and encourage healthy diet and regular exercise. Discussed with the patient the blood pressure is elevated in the office today and would recommend an increase in his losartan at this time. He tells us his blood pressure is always high in the office and has been normal at home and is declining medication increase. Patient agrees to take blood pressure once daily and reach out in 1 week with the log of his blood pressures if they remain elevated at home plan to increase losartan 100 mg. (3) Nonrheumatic mitral valve regurgitation: Code(s): I34.0 - Nonrheumatic mitral (valve) insufficiency Category: Medical Plan: Continue to follow with Cardiology on a yearly basis currently asymptomatic. (4) Nonrheumatic aortic valve insufficiency: Code(s): I35.1 - Nonrheumatic aortic (valve) insufficiency Category: Medical Plan: See above (5) Atherosclerotic cardiovascular disease: Code(s): I25.10 - Atherosclerotic heart disease of [place] coronary artery without angina pectoris Category: Medical Plan: Patient's LDL goal is less than 70 given the arthrosclerotic disease and is currently on rosuvastatin 10 mg. Continue with blood pressure management and continue to monitor sugars (6) Obesity: Code(s): E66.9 - Obesity, unspecified Category: Medical Plan: Healthy diet and regular exercise is encouraged. (7) Gout: Code(s): M10.9 - Gout, unspecified Category: Medical Plan: Currently on allopurinol and denies any recent flares. (8) Chronic migraine without aura: Code(s): G43.709 - Chronic migraine without aura, not intractable, without status migrainosus Category: Medical Qualifiers: Intractability: not intractable Status migrainosus presence: without status migrainosus Qualified Code(s): G43.709 - Chronic migraine without aura, not intractable, without status migrainosus Plan: Currently following with Neurology and on verapamil, B2, magnesium, gabapentin, Aimovig and Percocet as needed. (9) Obstructive sleep apnea hypopnea, severe: Code(s): G47.33 - Obstructive sleep apnea (adult) (pediatric) Category: Medical Plan: Uses CPAP faithfully at least 4 hours a night and benefits from this therapy. Plan The patient will continue current management for cluster headaches with Aimovig, gabapentin, magnesium, Percocet, and verapamil. Sleep apnea management will involve continued use of CPAP, with adjustments as needed for comfort. For hypertension, the patient is advised to monitor blood pressure at home for one week to determine if an increase in losartan is necessary. The patient will maintain current management for gout with allopurinol, and no recent flares have been reported. Regular monitoring of the aortic valve murmur will continue, with no current symptoms of concern. The hernia will be monitored for any changes or symptoms. The patient will undergo routine blood work, including thyroid, prostate, and complete blood count tests. Preventative care measures include annual dermatology exams, colon cancer screening with Cologuard, and regular eye exams. This note was constructed using voice recognition software. While every effort has been made to ensure accuracy and in mold coater, still areas may have been included sometimes these areas may affect the content or meeting of the given symptoms. Total time spent caring for the patient today was 30 minutes. This includes time spent before the visit reviewing the chart, time spent during the visit, and time spent after the visit and documentation. Patient was informed and verbally consented to the use of an ambient scribe for clinic note documentation during this visit. Orders: Orders PSA, Ultra Sensitive 03/16/25 Z00.00 - Encounter for general adult medical examination without abnormal findings TSH reflex Free T4 03/16/25 Z13.29 - Encounter for screening for other suspected endocrine disorder Complete Blood Count Auto Diff 03/16/25 I25.10 - Atherosclerotic heart disease of [place] coronary artery without angina pectoris, Z00.00 - Encounter for general adult medical examination without abnormal findings Hemoglobin A1c 03/16/25 E78.5 - Hyperlipidemia, unspecified, Z13.1 - Encounter for screening for diabetes mellitus Medications: Discontinued ciprofloxacin HCl (Cipro) Discontinued Reason: Patient no longer taking 250 mg PO BID 10 tabs 0RF zolpidem (Ambien) Discontinued Reason: Patient no longer taking 5 mg PO BEDTIME PRN 30 tabs 2RF sleep
[2025-03-16 08:48] VITALS: BP 142/98; PULSE 73; O2SAT 95; BMI 40.9
[2025-03-16 09:34] VITALS: BP 156/82
== END 2025-03-16 09:47 | disposition home or self-care (01) ==
DX: Z00.00 Encounter for general adult medical examination without abnormal findings (principal); I10 Essential (primary) hypertension; E66.9 Obesity, unspecified; Z68.41 Body mass index [BMI] 40.0-44.9, adult; I34.0 Nonrheumatic mitral (valve) insufficiency; I35.1 Nonrheumatic aortic (valve) insufficiency; I25.10 Atherosclerotic heart disease of native coronary artery without angina pectoris; M10.9 Gout, unspecified; G43.709 Chronic migraine without aura, not intractable, without status migrainosus; G47.33 Obstructive sleep apnea (adult) (pediatric)

== ENCOUNTER 2025-05-12 08:41 | Outpatient (AMB) | payer MEDICARE, SELFPAY ==
[2025-05-12 08:48] VITALS: BP 142/72; PULSE 74; BMI 41.2
--- NOTE | 2025-05-12 08:48 | A.OFFVIS_ITS ---
Vital Signs 05/12/25 08:48 Height 5 ft 10 in Weight 287 lb 7.724 oz BMI 41.2 BP 142/72 H Blood Pressure Location Lt brachial Position Sitting Pulse 74 Pulse Source Monitor Intake Visit Reasons: 1 yr follow up Accompanied by: Self / Same As Patient Allergies codeine Allergy (Unknown, Verified 05/12/25 08:51) Unknown erythromycin base Allergy (Unknown, Verified 05/12/25 08:51) Unknown Medication List - Last Reconciled 05/12/25 by Chinmay Wallace MD allopurinol 300 mg PO DAILY erenumab-aooe (Aimovig Autoinjector) 140 mg subcut ONCE 30 days gabapentin 1,200 mg (2 x 600 mg) PO TID 30 days losartan 50 mg PO DAILY magnesium oxide 400 mg PO DAILY riboflavin (vitamin B2) 400 mg PO DAILY rosuvastatin 10 mg PO DAILY verapamil 120 mg PO TID HPI Comments Details: Aman returns for follow-up. In the past, he was seen for dizziness. However, there was concern for vascular disease due to family history and that led to further workup with echocardiogram and coronary CTA. Overall, he states he feels fine. He has got no cardiac symptoms whatsoever. His blood pressure does run high but he always blames it on white coat hypertension. He states home blood pressures only the 120s/80s. Otherwise, he takes verapamil for headaches. Has obstructive sleep apnea on CPAP. [facility] Medical History Chronic wound Atherosclerotic cardiovascular disease Obstructive sleep apnea hypopnea, severe Cluster headaches Obesity Gout Surgical History History of cholecystectomy Family History Father Renal failure Mother Esophageal cancer Sister Lupus Brother End of life care Sister No problems noted. Son Substance use disorder Son Substance use disorder Social History Housing: House Alcohol intake: current Alcohol intake frequency: a few times a month Patient Tobacco Use Status: Never used Tobacco e-Cigarette/Vaping Use: Never Used Second Hand Smoke Exposure: No service: No Current occupational status: retired Cognitive needs: No Hearing needs: No Vision needs: No Review of Systems Const Denies daytime sleepiness, Denies difficulty sleeping, Denies snoring, Denies stops breathing during sleep and Denies weakness Card Denies chest pain, Denies rapid heart rate, Denies irregular heart rhythm, Denies claudication, Denies leg edema, Denies lightheadedness, Denies palpitations, Denies dyspnea, Denies dyspnea on exertion, Denies orthopnea, Denies paroxysmal nocturnal dyspnea and Denies slow heart rate Resp Denies cough, Denies dyspnea, Denies dyspnea on exertion and Denies snoring GI Reports no additional complaints, Denies hematochezia, Denies change in stool character and Denies dyspepsia Musc Denies abnormal gait, Denies muscle weakness and Denies numbness Neuro Denies abnormal gait, Denies numbness and Denies weakness Endo Denies palpitations Physical Exam Vital Signs: Last Vital Signs Pulse 74 05/12/25 08:48 BP 142/72 H 05/12/25 08:48 BMI result Body Mass Index 41.2 Const General: comfortable and no acute distress Orientation/consciousness: patient oriented x3 HEENT Other: Unremarkable Head: Yes normal to inspection Neck Neck: Yes normal visual inspection Chest Chest palpation & inspection: normal inspection of the chest Resp Auscultation: clear to auscultation bilaterally Cardio Palpation: normal PMI Heart sounds: S1 normal heart sound present, S2 normal heart sound present, no gallops, no murmurs and no rubs GI Palpation (GI): Soft to palpation Back/Spine/Pelvis Other: unremarkable Skin General skin exam: no rashes or lesions noted Neuro General: patient oriented x3 Extrem General: Yes normal to inspection Psych Mental Status: mental status grossly normal Office Procedures EKG Details: EKG with sinus rhythm at 74/Min; cannot exclude old inferior infarct but more likely from body habitus; [place] [id number], Complete Assessment & Plan Assessment & Plan (1) Atherosclerotic cardiovascular disease: Code(s): I25.10 - Atherosclerotic heart disease of [place] coronary artery without angina pectoris Category: Medical (2) Hypertension: Code(s): I10 - Essential (primary) hypertension Category: Medical (3) Nonrheumatic mitral valve regurgitation: Code(s): I34.0 - Nonrheumatic mitral (valve) insufficiency Category: Medical (4) Nonrheumatic aortic valve insufficiency: Code(s): I35.1 - Nonrheumatic aortic (valve) insufficiency Category: Medical (5) Ascending aorta enlargement: Code(s): I77.89 - Other specified disorders of arteries and arterioles Category: Medical (6) Dyslipidemia: Code(s): E78.5 - Hyperlipidemia, unspecified Category: Medical (7) Obesity: Code(s): E66.9 - Obesity, unspecified Category: Medical (8) Obstructive sleep apnea hypopnea, severe: Code(s): G47.33 - Obstructive sleep apnea (adult) (pediatric) Category: Medical Plan Cardiac studies reviewed. Echocardiogram in the past reported to have low normal LVEF at 50-55%; apex/apical anterior/apical lateral hypokinesis described but upon my review, not entirely convincing. Ascending aortic size 4.1 cm. In the repeat study, LVEF 55-60% without any obvious wall motion abnormalities. Increased right ventricular size. [id number] mitral regurgitation/mild aortic regurgitation/tricuspid regurgitation. Moderate pulmonary hypertension. Ascending aortic size 4 cm. In the coronary CTA, nothing hemodynamically significant. [id number] c alcific plaque in the LAD/Right coronary artery with minimal stenosis at less than 25%. With regard to the coronary disease, continue statins. Lipids are reasonable and further benefit for mainly come from weight loss. With regard to blood pressure, he states home readings are completely normal. He is on losartan and that can be continued. He will keep us posted with any future changes in home readings. With regard to the mildly ascending aortic enlargement, no specific consequence and probably acceptable for his body surface area. We can recheck before next visit. V Valvular findings are not of any specific consequence at this time and can be monitored on echocardiogram. With regard to severe JAMIL, again mainly related to weight. If he does lose weight that will improve. Continue CPAP otherwise. Follow up in one year. In the interim, call with any concerns. Discussion Notes During the visit, we discussed the patient's slightly elevated blood pressure readings at the clinic, likely influenced by anxiety during medical visits. I advised the patient to continue monitoring his blood pressure at home and to report any consistent readings above 140. We also reviewed his current medication regimen, including losartan and rosuvastatin, and confirmed that his cholesterol levels are well-managed. Patient was informed and verbally consented to the use of an ambient scribe for clinic note documentation during this visit. Orders: Orders CA echo transthoracic complete 1 Year I25.10 - Atherosclerotic heart disease of [place] coronary artery without angina pectoris, I77.89 - Other specified disorders of arteries and arterioles Patient Instructions: - Continue taking losartan 50 mg daily. - Monitor blood pressure at home regularly and report consistently high readings above 140/85mmHg. - Maintain regular exercise routine to help manage anxiety and overall health. - if any new cardiac symptoms, contact us immediately or seek emergency help. Coding Level of Care Code Est Pt Level 4 (22966) Complex EM visit Add On G2211 Diagnoses Atherosclerotic cardiovascular disease I25.10 Hypertension I10 Nonrheumatic mitral valve regurgitation I34.0 Nonrheumatic aortic valve insufficiency I35.1 Ascending aorta enlargement I77.89 Dyslipidemia E78.5 Obesity E66.9 Obstructive sleep apnea hypopnea, severe G47.33 CPT Codes EKG - CPT: 16632-[id number], Complete ([id number])
--- OUTSIDE RECORDS SUMMARY | 2025-05-12 09:00 | XMS_ITS | Patient Health Record ---
[facility] Address [address] [place] [address] Care Team Providers Care Sales Account Specialist Name Role Phone Ronan Camejo MD Primary Care Provider Unavaila Bobo Lord Unavailable [phone] Allergies Allergen (clinical drug ingredient) Drug/Non Drug [...] Insured Coverage Start Date Coverage End Date [facility] [address] [place] [id number] Self - patient is the insured Medical (General) History Medical History History ICD Code Anxiety Gall bladder problems Gout Headaches/Migraines- chronic cluster hea daches Measles Mumps Chicken pox Surgical History Surgery Date(Month/Year) gall bladder laproscope shoulder impingement surgery
== END 2025-05-12 09:34 | disposition home or self-care (01) ==
LOC: HO.HCS 08:42
PROVIDERS: PCP Internal Medicine; Visit Provider Internal Medicine
DX: I25.10 Atherosclerotic heart disease of native coronary artery without angina pectoris (principal); I10 Essential (primary) hypertension; I34.0 Nonrheumatic mitral (valve) insufficiency; I35.1 Nonrheumatic aortic (valve) insufficiency; I77.89 Other specified disorders of arteries and arterioles; E78.5 Hyperlipidemia, unspecified; E66.9 Obesity, unspecified; G47.33 Obstructive sleep apnea (adult) (pediatric)
CPT/HCPCS: 93010; 99214; G2211

== ENCOUNTER → 2025-05-12 08:41 | Outpatient (BNVA) | payer MEDICARE, SELFPAY | PROVIDERS: PCP Internal Medicine; Visit Provider Internal Medicine | DX: I25.10 Atherosclerotic heart disease of native coronary artery without angina pectoris (principal); I10 Essential (primary) hypertension; I34.0 Nonrheumatic mitral (valve) insufficiency; I35.1 Nonrheumatic aortic (valve) insufficiency; I77.89 Other specified disorders of arteries and arterioles; E78.5 Hyperlipidemia, unspecified; E66.9 Obesity, unspecified; G47.33 Obstructive sleep apnea (adult) (pediatric) | CPT/HCPCS: 93005; 99212 ==